=== PATIENT | male | born 1955 | race Caucasian/White ===

== ENCOUNTER → 2021-10-01 09:17 | Outpatient (BNVA) | payer MEDICARE, SELFPAY | PROVIDERS: PCP Nurse Practitioner Family; Referring Provider Nurse Practitioner Family; Visit Provider Student in an Organized Health Care Education/Training Program | DX: M25.552 Pain in left hip (principal); Z96.642 Presence of left artificial hip joint | CPT/HCPCS: 99203 ==

== ENCOUNTER 2023-04-18 11:44 | Outpatient (REF) | payer MEDICARE, SELFPAY ==
[2023-04-18 15:29] LABS: Calculated LDL 163 mg/dL (<100); Cholesterol 242 mg/dL (<200); HDL Cholesterol 62 mg/dL (40-60); Triglyceride 87 mg/dL (<150)
== END 2023-04-18 11:45 | disposition home or self-care (01) ==
LOC: NCHCN 11:44
PROVIDERS: PCP Nurse Practitioner Family; Visit Provider Nurse Practitioner Family
DX: E78.5 Hyperlipidemia, unspecified (principal); R03.0 Elevated blood-pressure reading, without diagnosis of hypertension
CPT/HCPCS: 80061

== ENCOUNTER → 2023-04-28 14:24 | Outpatient (CLI) | payer MEDICARE, SELFPAY ==
--- NOTE | 2023-04-28 | DI.RAD_ITS ---
Exam(s) XR HIP RT COMPLETE AP PELVIS EXAM: XR HIP RT COMPLETE AP PELVIS CLINICAL HISTORY: LOW BACK PAIN RT HIP PAIN. TECHNIQUE: 2D digital imaging was performed. Two views COMPARISON: US ABDOMEN ULTRASOUND (P) from 05/12/2016 US ABDOMEN ULTRASOUND (P) from 05/12/2016 FINDINGS: BONES: No acute fracture is present. No bony destructive lesion is seen. There is a left hip prosthes is which shows normal alignment. No abnormal surrounding bony lucencies. JOINTS: No dislocation present. Apxp-ji-avyzltmc narrowing of the right hip joint space. Mild billy articular spurring. SI joints show mild spurring, left greater than right. SOFT TISSUE: Normal. IMPRESSION: Rvkc-bu-stakmnzi degenerative changes of the right hip. Unremarkable left hip prosthesis. DATA REPOSITORY: RADIATION DOSE DELIVERED:
== END ==
PROVIDERS: PCP Nurse Practitioner Family; Visit Provider Chiropractor
DX: M16.11 Unilateral primary osteoarthritis, right hip (principal)
CPT/HCPCS: 73502

== ENCOUNTER → 2023-05-02 00:55 | Outpatient (CLI) | payer MEDICARE, SELFPAY ==
--- NOTE | 2023-05-02 | DI.RAD_ITS ---
Exam(s) XR HIP LT AP LAT ONLY EXAM: XR HIP LT AP LAT ONLY CLINICAL HISTORY: HIP PAIN, M25.559. TECHNIQUE: 2D digital imaging was performed. Two images were obtained. AP and lateral views were ob tained. COMPARISON: CR XR HIP RT COMPLETE AP PELVIS from 04/28/2023 FINDINGS: BONES: There are stable post operative changes of a left total hip replacement present. No fracture or dislocation. JOINTS: The orthopedic hardware is in good position. No evidence of hardware loosening. SOFT TISSUE: Normal. IMPRESSION: Stable postoperative changes. DATA REPOSITORY: RADIATION DOSE DELIVERED:
--- NOTE | 2023-05-02 | DI.RAD_ITS ---
Exam(s) XR LUMBAR SPINE COMPLETE EXAM: XR LUMBAR SPINE COMPLETE CLINICAL HISTORY: LOW BACK PAIN, M54.50. TECHNIQUE: 2D digital imaging was performed of the lumbar spine. Five images were obtained. AP, la teral, right oblique, left oblique and L5-S1 spot views were obtained. COMPARISON: CT CHEST ABD PELVIS WITH CONTRAST from 05/12/2016 FINDINGS: BONES: No fracture or destructive lesion. There are endplate osteophytes at multiple levels of the star mbar spine. There are degenerative changes of the facets at L4-L5. A left total hip prosthesis is in completely visualized. DISKS: There is disc space narrowing at L1-L2. ALIGNMENT: Lumbar spinal alignment is within normal limits. No spondylolysis or spondylolisthesis. SOFT TISSUE: There is a 1.1 cm calcification projected over the lower pole of the left kidney consist ent with nephrolithiasis. IMPRESSION: Tajp-oy-hfnwanjt degenerative changes in the lumbar spine. DATA REPOSITORY: RADIATION DOSE DELIVERED:
--- NOTE | 2023-05-02 | DI.RAD_ITS ---
Exam(s) XR THORACIC SPINE COMPLETE EXAM: XR THORACIC SPINE COMPLETE CLINICAL HISTORY: BACK PAIN. TECHNIQUE: 2D digital imaging was performed of the thoracic spine. Three views were obtained. AP, swimmer's and lateral views were obtained. COMPARISON: CR CHEST 2 VIEWS PA,LAT from 05/13/2016 FINDINGS: BONES: There is no fracture or destructive lesion. The vertebral bodies and posterior elements are un remarkable. DISKS:Alignment is within normal limits. There are degenerative changes seen throughout the thoracic spine. SOFT TISSUE: Visualized lungs are clear. IMPRESSION: Moderate degenerative changes in the spine thoracic spine. DATA REPOSITORY: RADIATION DOSE DELIVERED:
== END ==
PROVIDERS: PCP Nurse Practitioner Family; Visit Provider Nurse Practitioner Family
DX: M51.35 Other intervertebral disc degeneration, thoracolumbar region (principal)
CPT/HCPCS: 72072; 72110; 73502

== ENCOUNTER → 2023-06-06 02:22 | Outpatient (CLI) | payer MEDICARE, SELFPAY ==
--- NOTE | 2023-06-06 | DI.MRI_ITS ---
Exam(s) MR LUMBAR SPINE WO EXAM: MR LUMBAR SPINE WO CLINICAL HISTORY: LOW BACK PAIN, M54.50. TECHNIQUE: Multiplanar multisequence MRI of the Lumbar spine was performed. COMPARISON: CR XR LUMBAR SPINE COMPLETE from 05/02/2023 CR XR HIP LT AP LAT ONLY from 05/02/2023 FINDINGS: Bones: The last intervertebral disc space is designated the L5/S1 level for the numbering purpose of this ex amination. The vertebral body heights are well maintained. Alignment: Unremarkable. The marrow signal characteristics are unremarkable. Cord: The conus tip ends at the T12 level. It is of normal size and signal intensity. T12-L1: No focal disc herniation is present. No central spinal canal stenosis.No neural foraminal st enosis. L1-2: No focal disc herniation is present. No central spinal canal stenosis.No neural foraminal sten osis. L2-3:Small endplate osteophytes. Posterior broad-based disc bulging. No focal disc herniation is pr esent. Mild facet degenerative changes. Ligamentous hypertrophy. Moderate central spinal canal st enosis moderate bilateral neural foraminal narrowing. L3-4: Arm small endplate osteophytes and mild broad-based disc bulging. Facet degenerative changes a nd ligamentous hypertrophy.No focal disc herniation is present. Kthj-in-fyynpvlu central spinal cyril l stenosis.Bilateral moderate neural foraminal stenosis. L4-5:No disc bulging. No focal disc herniation is present. No central spinal canal stenosis. Facet degenerative changes and ligamentous hypertrophy. No neural foraminal stenosis. L5-S1: No significant disc bulging. No focal disc herniation is present. No central spinal canal stenosis.No neural foraminal stenosis. The visualized SI joints and sacrum are unremarkable. Soft tissues: The paraspinal soft tissues are unremarkable. IMPRESSION: Moderate central canal stenosis and moderate bilateral neural foraminal narrowing at L2-3 secondary t o combination of degenerative disc changes and facet degenerative changes. Zaer-iv-baovwqzs central canal stenosis and moderate bilateral neural foraminal narrowing secondary t o combination of degenerative disc changes and facet degenerative changes. DATA REPOSITORY:
== END ==
PROVIDERS: PCP Nurse Practitioner Family; Visit Provider Nurse Practitioner Family
DX: M48.061 Spinal stenosis, lumbar region without neurogenic claudication
CPT/HCPCS: 72148

== ENCOUNTER 2024-01-23 12:51 | Outpatient (REF) | payer MEDICARE, SELFPAY ==
[2024-01-23 15:39] LABS: Bilirubin Negative (Negative); Blood Small (Negative); Clarity Sl Cloudy (Clear); Glucose Negative (Negative); Ketones Negative (Negative); Leukocyte Esterase Negative (Negative); Nitrite Negative (Negative); Specific Gravity >= 1.030 (1.005-1.025); Urobilinogen 0.2 mg/dL (Up to 0.2); pH 5.5 (5-8)
[2024-01-23 15:49] LABS: Bacteria Many HPF (Negative); C & S Indicated? No; Crystals Mod Calcium Oxalate HPF (Negative); Epithelial Cells Rare HPF (Negative); Mucus Negative (Negative); WBC Negative HPF (0-5)
[2024-01-23 16:15] LABS: COMMENT (LAB VIEW ONLY) 224.27 mg/dL; Microalb ug/mg Crea 13.3 ug/mg Cr
[2024-01-23 19:12] LABS: ALT 30 U/L (16-63); AST 18 U/L (15-37); Alkaline Phosphatase 77 U/L (46-116); Anion Gap 9.6 mmol/L (3-11); BUN 9 mg/dL (7-18); Bilirubin, Total 0.61 mg/dL (0.2-1.0); CO2 25.4 mmol/L (21.0-32.0); CREATININE 0.9 mg/dL (0.70-1.30); Calcium 8.6 mg/dL (8.5-10.1); Calculated LDL 158 mg/dL (<100); Chloride 106 mmol/L (98-107); Cholesterol 237 mg/dL (<200); Estimated GFR 91.88 (mL/min/1.73m2); Glucose 109 mg/dL (74-106); HDL Cholesterol 68 mg/dL (40-60); Potassium 4.2 mmol/L (3.5-5.1); Sodium 141 mmol/L (136-145); Total Protein 6.7 g/dL (6.4-8.2); Triglyceride 58 mg/dL (<150)
== END 2024-01-23 12:52 | disposition home or self-care (01) ==
LOC: NCHCN 12:51
PROVIDERS: PCP Nurse Practitioner Family; Visit Provider Nurse Practitioner Family
DX: E78.5 Hyperlipidemia, unspecified (principal); R39.89 Other symptoms and signs involving the genitourinary system
CPT/HCPCS: 80053; 80061; 81003; 81015; 82043; 82570; 84154

== ENCOUNTER → 2024-02-02 01:33 | Outpatient (CLI) | payer MEDICARE, SELFPAY ==
--- OUTSIDE RECORDS SUMMARY | 2024-02-02 01:40 | XMS_ITS | Encounter Summary ---
Author Organization [facility] [place] [address] Care Team Providers Care Personnel Administrator Name Role Phone Sahra Hope APRN Primary Care Provider [phone] Reason for Visit * Diagnostic Test (Routine) - Closed Specialty Diagnoses / Procedures Referred By Selene beltre Referred To Contact Radiology Diagnoses S/P joint replacement Procedures NM 3 phase bone scan Dennis Ewing MD [facility] ORTHOPAEDIC [place] [address] [place] [address] Referral ID Status Reason Start Date Expiration Date V isits Requested Visits Authorized [id number] Closed Specialty Service Requested 05/15/2015 05/14/2016 1 1 Encounter Details Date Type Department Care Team (Latest Contact Info) Description 05/26/2015 2:01 PM EST - 05/26/2015 11:59 PM EST Hospital Encounter [place] [address] Dennis Ewing MD [facility] ORTHOPAEDIC [place] [address] Discharge Disposition: Home Social History Tobacco Use Types Packs/Day Years Used Date Smoking Tobacco: Never Smokeless Tobacco: Never Alcohol Use Standard Drinks/Week Comments Yes 0 (1 standard drink = 0.6 oz pur e alcohol) occasional Sex and Gender Information Value Date Recorded Sex Assigned at Not on file Gender Identity Not on file Sexual Orientation Not on file documented as of this encounter Medications at Time of Discharge Medication Sig Dispensed Refills Start Date End Date amoxicillin (AMOXIL) 500 mg CapsuleIndications:After care following joint replacement Take 4 tabs one hour prior to dental procedures. 12 capsule 2 06/03/2014 06/23/2020 documented as of this encounter Plan of Treatment Not on file documented as of this encounter Procedures Procedure Name Priority Date/Time Associated Diagnosis Comments NM BONE SCAN 3 PHASE Routine 05/26/2015 3:22 PM EST S/P joint replacement documented in this encounter Results * NM 3 phase bone scan (05/26/2015 3:22 PM EST) Anatomical Region Laterality Modality Nuclear Medicine Impressions 05/26/2015 4:51 PM EST IMPRESSION: 1. ??No evidence for loosening of the left hip prosthesis. 2. 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 I have personally reviewed the image(s) and the residents interpretation and agree with the findings, Jaret Das at 05/26/2015 4:51 PM Narrative 05/26/2015 4:51 PM EST EXAMINATION: NM 3 PHASE BONE SCAN CLINICAL HISTORY: ? loose femoral component TECHNIQUE: Immediately following the intravenous administration of 26.2 mCi of Tc-99m MDP, sequential images of perfusion to the bilateral hips were obtained at 2 second intervals for 60 seconds in the anterior and posterior projections. Five minutes later, blood pool images were obtained of the bilateral hips in the anterior and posterior projections. Three hours later, a bone scan of the bilateral hips was performed with images obtained in the anterior and posterior projections. COMPARISON: Reduction radiographs dated May 15, 2015. FINDINGS: The blood flow and blood pool studies are normal, with no periprosthetic tracer uptake in the left hip. A small focus of increased tracer activity is seen in the inferior left sacroiliac joint region, consistent with focal arthritic reaction. Procedure Note Jaret Das MD - 05/26/2015 EXAMINATION: NM 3 PHASE BONE SCAN CLINICAL HISTORY: ? loose femoral component TECHNIQUE: Immediately following the intravenous administration of 26.2 mCi of Tc-99mMDP, sequential images of perfusion to the bilateral hips were obtained at 2second intervals for 60 seconds in the anterior and posterior projections. Five minutes later, blood pool images were obtained of the bilateral hipsin the anterior and posterior projections. Three hours later, a bone scan of the bilateral hips was performed withimages obtained in the anterior and posterior projections. COMPARISON: Reduction radiographs dated May 15, 2015. FINDINGS: The blood flow and blood pool studies are normal, with no periprosthetictracer uptake in the left hip. A small focus of increased tracer activity is seen in the inferior left sacroiliac joint region, consistent with focal arthritic reaction. IMPRESSION IMPRESSION: 1. No evidence for loosening of the left hip prosthesis. 2. 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 I have personally reviewed the image(s) and the residents interpretationand agree with the findings, Jaret Das at 05/26/2015 4:51 PM Dennis Ewing MD IMG NM ORDERABLES documented in this encounter Visit Diagnoses Not on filedocumented in this encounter Care Teams Personnel Administrator Relationship Specialty Start Date End Date Sahra Hope APRN [address] [place] [address] PCP - General 08/27/14 documented as of this encounter
--- OUTSIDE RECORDS SUMMARY | 2024-02-02 01:40 | XMS_ITS | Encounter Summary ---
Author Organization [facility] Address [facility] [place] [address] Care Team Providers Care Cardiology Clinical Nurse Specialist Name Role Phone TheronAntwon Primary Care Provider [phone] Encounter Details Date Type Department Care Team (Late st Contact Info) Description 03/23/2012 Orders [place] [address] Edgar Cottrell MD [facility] [place] [address] S/P hip replacement (Primary Dx) Social History Tobacco Use Types Packs/Day Years Used Date Smoking Tobacco: Never Smokeless Tobacco: Never Sex and Gender Information Value Date Recorded Sex Assigned at Not on file Gender Identity Not on file Sexual Orientation Not on file documented as of this encounter Plan of Treatment Not on file documented as of this encounter Results * XR pelvis and lateral hip (05/30/2012 2:42 PM EST) Anatomical Region Laterality Modality Pelvis, Hip N/A Radiographic Silvia ging 05/30/2012 2:42 PM EST Narrative 05/30/2012 3:30 PM EST Examination PELVIS+LATERAL HIP/LEFT Clinical History ANNL RCHCK L RENU Comparison 06/30/2010 Technique Findings 2 views of the noncemented left total hip arthroplasty. ??There is nothing interval change with. Iza prosthetic lucency in the proximal femur. No definite subsidence. ??There is a peripheral lucency noted along the femoral shaft component. ??No evidence for eccentric polyethylene wear. Acetabular component appears well seated. Appearance of the right hip demonstrates a mild degree of degenerative change with marginal osteophyte formation and bony overgrowth at the head neck junction. Right and left SI joints are intact. Impression Prominent periprosthetic lucency best seen on the left lateral have been increase from previous imaging may indicate a degree of loosening or infection. ?? No significant subsidence. Procedure Note Arleen Barker MD - 05/30/2012 Examination PELVIS+LATERAL HIP/LEFT Clinical History ANNL RCHCK L RENU Comparison 06/30/2010 Technique Findings 2 views of the noncemented left total hip arthroplasty. There is nothing interval change with. Iza prosthetic lucency in the proximal femur. No definite subsidence. There is a peripheral lucency noted along thefemoral shaft component. No evidence for eccentric polyethylene wear. Acetabular component appears well seated. Appearance of the right hip demonstrates amild degree of degenerative change with marginal osteophyte formation and bony overgrowth at the head neck junction. Right and left SI joints are intact. Impression Prominent periprosthetic lucency best seen on the left lateral have been increase from previous imaging may indicate a degree of loosening orinfection. No significant subsidence. Edgar Cottrell MD IMG DX ORDERABLES documented in this encounter Visit Diagnoses Diagnosis S/P hip replacement- Primary Hip joint replacement by other means S/P hip replacement Hip joint replacement by other means documented in this encounter Care Teams Cardiology Clinical Nurse Specialist Relationship Specialty Start Date End Date Antwon Crump DO [address] [place] [id number] PCP - General 06/09/10 08/26/14 documented as of this encounter
--- OUTSIDE RECORDS SUMMARY | 2024-02-02 01:40 | XMS_ITS | Encounter Summary ---
Author Organization [facility] [place] [address] Care Team Providers Care Labor Operator Name Role Phone TheronAntwon Primary Care Provider [phone] Reason for Visit * Reason Onset Date Comments Medication Refill 06/03/2014 Encounter Details Date Type Department Care Team (Late st Contact Info) Description 06/03/2014 Telephone [place] [id number] Edgar Cottrell MD [facility] [place] [address] Medication Refill Social History Tobacco Use Types Packs/Day Years Used Date Smoking Tobacco: Never Smokeless Tobacco: Never Alcohol Use Standard Drinks/Week Comments Yes 0 (1 standard drink = 0.6 oz pur e alcohol) occasional Sex and Gender Information Value Date Recorded Sex Assigned at Not on file Gender Identity Not on file Sexual Orientation Not on file documented as of this encounter Miscellaneous Notes * Telephone Encounter - Paula Baird RN - 06/03/2014 9:08 AM EST S/P hip replacement Amoxicillin electronically sent to his pharmacy. TC to home notified of above. * Telephone Encounter - Matilde Hagan - 06/03/2014 8:52 AM EST Person calling? [facility] What medication are you refilling? AMOXICILLIN 500MG Would you like this called into a pharmacy? If so, which one? [facility] [place] If not, are you coming to pick this up? N/A Or, would you like this mailed to your home. Best number to reach person calling? [phone] The nurse will call you when your prescription is ready, please allow up to 72 hrs for processing. documented in this encounter Plan of Treatment Not on file documented as of this encounter Visit Diagnoses Diagnosis Aftercare following joint replacement documented in this encounter Care Teams Labor Operator Relationship Specialty Start Date End Date Antwon Crump DO [address] [place] [address] PCP - General 06/09/10 08/26/14 documented as of this encounter
--- OUTSIDE RECORDS SUMMARY | 2024-02-02 01:40 | XMS_ITS | Encounter Summary ---
Author Organization [facility] Address [facility] [place] [address] Care Team Providers Care Gas Usage Meter Clerk Name Role Phone Antwon Crump Primary Care Provider [phone] Reason for Visit * Reason Comments Bilateral Arm Pain Discomfort Left is w orse than right, Complains of numbness Encounter Details Date Type Department Care Team (Late st Contact Info) Description 04/29/2011 12:00 PM EDT Procedure [place] [address] Genevieve Evans MD [facility] PHYSICAL MEDICINE & [place] [address] Carpal tunnel syndrome (Primary Dx) Discharge Disposition: Home Social History Tobacco Use Types Packs/Day Years Used Date Smoking Tobacco: Never Smokeless Tobacco: Never Sex and Gender Information Value Date Recorded Sex Assigned at Not on file Gender Identity Not on file Sexual Orientation Not on file documented as of this encounter Progress Notes * Genevieve Evans - 05/03/2011 11:14 AM EDT ELECTROMYOGRAPHY AND NERVE CONDUCTION REPORT Genevieve Evans MD Section of Physical Medicine and Rehabilitation Department of Orthopedics Provider: Genevieve Evans MD This patient was seen for Electromyographic consultation at the request of Dr Connolly. A few years of numbness into the hands, going into the forearms. They fall asleep at night. They fall asleep with activities. Has had previous fracture clavicle on right and shoulder dislocation on the left. ALso has had THR on the left with some residual numbness into the thigh. He is followed by Dr Cottrell for his hip. The left shoulder has some pain and aching into the joint. If brings arm into flexion and adduction, can feel like he is stretching it. The right does not have real pain but can hurt. Has some achinginto the neck. Feels the numbness in the hands and forearms are the primary complaints. NOtes the symptoms are primarily into the first three digits. Can shake out the symptoms but still returns. Limits him in activities such as kayaking, riding motor bike etc. Summary of results are as follows: FINDINGS: The right and left median motor distal latencies are moderately to more severely delayed ( 5.0 msec on the left and 5.5 msec on the right). Amplitudes are within normal limits. Forearm conductions are mildly slowed. The right and left median sensory distal latencies are moderately slowed with reduced amplitudes, right greater than left ( right- 5.2 msec and left 4.7 msec). Right and left ulnar motor and sensory distal latencies are within normal limits with normal amplitudes and conduction velocities to above elbow. Right and left radial sensory distal latencies are within normal limits with normal amplitudes. Needle study of the right upper extremity shows normal membrane stability. Recruitment is full withno evidence for axonal loss. The exception is the right abductor pollicis brevis which shows mild increased motor unit amplitude and mild motor unit dropout. Needle studies of selected muscles of the left upper extremity and hand show no membrane instability. Recruitment is full and appropriate for effort. The exception is the left abductor pollicis brevis which shows mild increased motor unit amplitude and very mild motor unit dropout. 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 While there is mild, chronic, axonal loss, the primary entrapment is a conduction block at the wrists. . There is no evidence for ulnar nerve entrapment at the wrists or elbows. There is no evidence for peripheral neuropathy. There is no evidence for radiculopathy or brachial plexopathy. Please note that a normal study may not rule out particularly proximal involvement such as plexopathy or radiculopathy as these are primarily clinical diagnoses. Normal values: UE motor distal latencies-4.2 msec: Amp-5 millV sensory distal latencies to peak, 3.6 msec; Amp-10uV conduction velocities- >50 M/sec LE motor distal latencies ( except tibial)-4 msec; Amp 3millV sensory distal latencies-4msec; Amp 5uV conduction velocities- >40 M/sec The results of the test were discussed with the patient. Copies of this report were sent to the primary care and referring physicians. Full scanned report of this study (including the study graphics) is located in the patient's eDH record in the following locations. Once in the patient???s chart, please click on CHART REVIEW. IN CHART REVIEW, there are two ways to access the report. 1. please select the SCAN DOC tab. IN the SCAN DOC section, please double-click on the EMG REPORT for the EMG appointment date. This will open the scanned EMG for that date. 2. Select the PROCEDURE tab. In the PROCEDURE section, please click on the EMG SCAN for the scheduled date. Then please double click on the blue colored link under RESULTS- in the summary below. Thiswill open the scanned EMG for that date Thank you, Genevieve Evans MD documented in this encounter Procedure Notes * Genevieve Evans - 05/03/2011 11:15 AM EDTAssociated Order(s): EMG WITH F-WAVE Procedure(s): EMG WITH F-WAVE Pre-Procedure Diagnose(s): Carpal tunnel syndrome Full scanned report of this study (including the study graphics) is located in the patient's eDH record in the following locations. Once in the patient???s chart, please click on CHART REVIEW. IN CHART REVIEW, there are two ways to access the report. 1. please select the SCAN DOC tab. IN the SCAN DOC section, please double-click on the EMG REPORT for the EMG appointment date. This will open the scanned EMG for that date. 2. Select the PROCEDURE tab. In the PROCEDURE section, please click on the EMG SCAN for the scheduled date. Then please double click on the blue colored link under RESULTS- in the summary below. Thiswill open the scanned EMG for that date Thank you, Genevieve Evans MD Physical Medicine and Rehabilitation documented in this encounter Plan of Treatment Not on file documented as of this encounter Procedures Procedure Name Priority Date/Time Associated Diagnosis Comments EMG WITH F-WAVE Routine 05/03/2011 11:15 AM EDT Carpal tunnel syndrome documented in this encounter Results * EMG WITH F-WAVE (05/03/2011 11:15 AM EDT) Narrative Genevieve Evans - 05/03/2011 11:15 AM EDT Full scanned report of this study (including the study graphics) is located in the patient's eDH record in the following locations. Once in the patient? s chart, please click on CHART REVIEW. IN CHART REVIEW, there are two ways to access the report. 1. please select the SCAN DOC tab. IN the SCAN DOC section, please double-click on the EMG REPORT for the EMG appointment date. This will open the scanned EMG for that date. 2. Select the PROCEDURE tab. In the PROCEDURE section, please click on the EMG SCAN for the scheduled date. Then please double click on the blue colored link under RESULTS- in the summary below. This will open the scanned EMG for that date Thank you, Genevieve Evans MD Physical Medicine and Rehabilitation Procedure Note Genevieve Evans - 05/03/2011 11:15 AM EDT Full scanned report of this study (including the study graphics) islocated in the patient's eDH record in the following locations. Once inthe patient? s chart, please click on CHART REVIEW. IN CHART REVIEW, thereare two ways to access the report. 1. please select the SCAN DOC tab. IN the SCAN DOC section, pleasedouble-click on the EMG REPORT for the EMG appointment date. This willopen the scanned EMG for that date. 2. Select the PROCEDURE tab. In the PROCEDURE section, please click on theEMG SCAN for the scheduled date. Then please double click on the bluecolored link under RESULTS- in the summary below. This will open thescanned EMG for that date Thank you, Genevieve Evans MD Physical Medicine and Rehabilitation Genevieve Evans MD NEUROLOGY ORDERABLES documented in this encounter Visit Diagnoses Diagnosis Carpal tunnel syndrome- Primary documented in this encounter Care Teams Gas Usage Meter Clerk Relationship Specialty Start Date End Date Antwon Crump DO [address] [place] [address] PCP - General 06/09/10 08/26/14 documented as of this encounter
--- OUTSIDE RECORDS SUMMARY | 2024-02-02 01:40 | XMS_ITS | Encounter Summary ---
Author Organization [facility] Address [facility] [place] [address] Care Team Providers Care Drive Worker Name Role Phone Sahra Hope JL Primary Care Provider [phone] Encounter Details Date Type Department Care Team (Late st Contact Info) Description 03/29/2017 Telephone Dermatology at [facility] [address] [place] [address] Shayy Ngo MD [facility] [address] [place] [address] Social History Tobacco Use Types Packs/Day Years [...] encounter Miscellaneous Notes * Telephone Encounter - Sumaya Callejas - 03/29/2017 1:26 PM EDT I spoke with Wojciech Shaw about scheduling a full skin exam and the patient declined at this time. Wojciech did take my direct number to schedule after he's thought about it, patient stated, that we have jumped the gun. documented in this encounter Plan of Treatment Not on file documented as of this encounter Visit Diagnoses Not on filedocumented in this encounter Care Teams Drive Worker Relationship Specialty Start Date End Date Sahra Hope APRN [address] [place] [address] PCP - General 08/27/14 documented as of this encounter
--- OUTSIDE RECORDS SUMMARY | 2024-02-02 01:40 | XMS_ITS | Encounter Summary ---
Author Organization [facility] Address [facility] [place] [address] Care Team Providers Care Appointment Coordinator Name Role Phone Antwon Crump Primary Care Provider [phone] Reason for Visit * Reason Comments Aftercare Of Tjr SP L RENU DOS 04/10/10 Encounter Details Date Type Department Care Team (Late st Contact Info) Description 09/18/2013 2:20 PM EST Office [place] [address] Edgar Cottrell MD [facility] [place] [address] S/P hip replacement (Primary Dx) Discharge Disposition: Home Social History [...] on file documented as of this encounter Last Filed Vital Signs Vital Sign Reading Time Taken Comments Blood Pressure 139/90 09/18/2013 2:23 PM EST Pulse 71 09/18/2013 2:23 PM EST Temperature - - Respiratory Rate - - Oxygen Saturation - - Inhaled Oxygen Concentration - - Weight 82.8 kg (182 lb 9.6 oz) 09/18/2013 2:23 P M EST Height 179.1 cm (5' 10.5) 09/18/2013 2:23 PM ES T STATED Body Mass Index 25.83 09/18/2013 2:23 PM EST documented in this encounter Patient Instructions * Patient Instructions* Kali Torres PA - 09/18/2013 3:00 PM EST -activities as tolerated with exception of running (axial loading) -infection awareness -continue stretching and strengthening -antibiotic prior to dental work documented in this encounter Progress Notes * Kali Torres PA - 09/18/2013 3:08 PM EST Chief COmplaint: S/P Left RENU SURGERY DATE: 04/10/2010 ARAM LUIS, EDGAR Valencia Procedure Performed: Left Total Hip Arthroplasty Implants Used: Femoral Stem: DePuy [place] BPS, Size 6 STD offset Femoral Head: Biolox Delta ceramic, Size 36+5mm Acetabulum: DePuy [place] with Gription, Size 54mm adjuvant screw fixation x 1 x 6.5mm (35mm) Liner: Altrx polyethylene, Size 54x36+4 neutral HPI: Mr Shaw returns now 4 years from his hip replacement. He continues to do very well. He has no pain. ROM and stability are not limiting at all. He continues to be very active. He has no limitations in regard to the hip. His health has been stable aside from the joint. There has been no fevers, chills or signs of infection. Physical Exam: 56 yo male ambulatory with no antalgia or assistive devices. When supine, leg lengths are equal. Calves soft and nontender without edema. Peripheral pulses intact and equal. ROM of thehip is well tolerated without pain or apprehension. No pain or weakness with resisted hip ROM. No pain or shucking with axial loading of the femur. No trochanteric tenderness. X-rays: Noncemented implants; no sign of fracture or dislocation. On the lateral view, there is lucency about the proximal end of the femoral component; unchanged from previous. Assessment: s/p left RENU Plan: He is doing well. We reviewed joint precautions and infection management. Antibiotic prophylaxis was recommended. We discussed appropriate activities to prevent premature implant failure. I encouraged continued joint specific rehab exercises. We'll plan to f/u in 2 year(s) or sooner as needed. documented in this encounter Plan of Treatment Not on file documented as of this encounter Visit Diagnoses Diagnosis S/P hip replacement- Primary Hip joint replacement by other means documented in this encounter Care Teams Appointment Coordinator Relationship Specialty Start Date End Date Antwon Crump DO [address] [place] [address] PCP - General 06/09/10 08/26/14 documented as of this encounter
--- OUTSIDE RECORDS SUMMARY | 2024-02-02 01:40 | XMS_ITS | Encounter Summary ---
Author Organization [facility] Address [facility] [place] [address] Care Team Providers Care Bulk Clerk Name Role Phone Sahra Hope JL Primary Care Provider [phone] Encounter Details Date Type Department Care Team (Late st Contact Info) Description 03/28/2017 Telephone Dermatology at [facility] [address] [place] [address] Shayy Ngo MD [facility] [address] [place] [address] Social History Tobacco Use Types Packs/Day Years [...] encounter Miscellaneous Notes * Telephone Encounter - Shayy Ngo - 03/28/2017 1:[address] Xiao's call. She did a shave bx on 03/16/17. Read at [facility]. Dr. Victoria Marquez. Bx resulted as focal cutaneous mucinosis. She didn't know what to make of this. I reviewed that one lesion can be incidental and of little consequence, but he should have a full skin exam to ensure there aren't other lesions given systemic mucinoses can be associated with blood dyscrasias. I asked that he have the path report with him when he comes for his appt. * Telephone Encounter - Sumaya Callejas - 03/28/2017 9:44 AM EDT Received a call from Annamarie Xiao returning your call, best number to reach her back is [phone] 8 am - 5 pm. documented in this encounter Plan of Treatment Not on file documented as of this encounter Visit Diagnoses Not on filedocumented in this encounter Care Teams Bulk Clerk Relationship Specialty Start Date End Date Sahra Hope APRN [address] [place] [address] PCP - General 08/27/14 documented as of this encounter
--- OUTSIDE RECORDS SUMMARY | 2024-02-02 01:40 | XMS_ITS | Encounter Summary ---
[place] [address] Care Team Providers Care Scrum Master Name Role Phone Sahra Hope APRN Primary Care Provider [phone] Reason for Referral * Diagnostic Test (Routine) - Closed Specialty Diagnoses / Procedures Referred By Contac t Referred To Contact Radiology Diagnoses S/P joint replacement Procedures NM 3 phase bone scan Dennis Ewing MD [facility] [place] [address] [place] [address] Referral ID Status Reason Start Date Expiration Date V isits Requested Visits Authorized [id number] Closed Specialty Service Requested 05/15/2015 05/14/2016 1 1 Reason for Visit * Diagnostic Test (Routine) - Closed Specialty Diagnoses / Procedures Referred By Contac t Referred To Contact Radiology Diagnoses S/P joint replacement Procedures NM 3 phase bone scan Dennis Ewing MD [facility] [place] [address] [place] [address] Referral ID Status Reason Start Date Expiration Date V isits Requested Visits Authorized [id number] Closed Specialty Service Requested 05/15/2015 05/14/2016 1 1 Encounter Details Date Type Department Care Team (Latest Contact Info) Description 05/26/2015 11:23 AM EST - 05/26/2015 2:00 PM EST Hospital Encounter [place] [address] Dennis Ewing MD [facility] DR ORTHOPAEDIC [place] [address] S/P joint replacement Discharge Disposition: Home Social History Tobacco Use [...] at 05/26/2015 4:51 PM Dennis Ewing MD [facility] [place] ORDERABLES documented in this encounter Visit Diagnoses Diagnosis S/P joint replacement Unspecified joint replacement by other means documented in this encounter Administered Medications Inactive Administered Medications - up to 3 most recent administrations Medication Order MAR Action Action Date Dose Rate Site technetium (Tc-99m) methylene diphosphonate (MDP) injection 26.2 mCi 26.2 mCi, Intravenous, ONCE PRN, 1 dose, Starting on Tue05/26/15 at 1210, Until Tue05/26/15 at 1210, Per Protocol, Routine Given 05/26/2015 12:10 PM EST 26.2 mCi documented in this encounter Care Teams Scrum Master Relationship Specialty Start Date End Date Sahra Hope APRN [address] [place] [address] PCP - General 08/27/14 documented as of this encounter
--- OUTSIDE RECORDS SUMMARY | 2024-02-02 01:40 | XMS_ITS | Encounter Summary ---
Author Organization [facility] Address [facility] [address] Care Team Providers Care Grooming Assistant Name Role Phone TheronAntwon Primary Care Provider [phone] Encounter Details Date Type Department Care Team (Late st Contact Info) Description 07/12/2013 Orders [place] [address] Edgar Cottrell MD [facility] [place] [address] Status post hip replacement (Primary Dx) Social History Tobacco [...] Results * XR pelvis and lateral hip (09/18/2013 1:21 PM EST) Anatomical Region Laterality Modality Pelvis, Hip N/A Radiographic Silvia ging 09/18/2013 1:21 PM EST Narrative 09/18/2013 3:01 PM EST Examination PELVIS+LATERAL HIP/LEFT Clinical History LEFT RENU 04/10/2010 Comparison 05/30/2012, 06/30/2010, 04/10/2010. Technique AP pelvis, frogleg lateral left hip. Findings Postsurgical changes of noncemented left total hip arthroplasty. ??No interval subsidence, new significant periprosthetic radiolucency, periprosthetic fracture. ??Existing at 3 -4 mm lucency about the proximal femoral component as seen on the frogleg lateral view, is unchanged since the most recent comparison. Small marginal osteophytes and subchondral sclerosis at the right hip joint indicative of mild osteoarthritis is unchanged. Impression Unchanged appearance of left total hip arthroplasty including 3-4 mm lucency about the proximal femoral component. Procedure Note Ricki Anand MD - 09/18/2013 Examination PELVIS+LATERAL HIP/LEFT Clinical History LEFT RENU 04/10/2010 Comparison 05/30/2012, 06/30/2010, 04/10/2010. Technique AP pelvis, frogleg lateral left hip. Findings Postsurgical changes of noncemented left total hip arthroplasty. Nointerval subsidence, new significant periprosthetic radiolucency, periprosthetic fracture. Existing at 3 -4 mm lucency about the proximal femoralcomponent as seen on the frogleg lateral view, is unchanged since the most recent comparison. Small marginal osteophytes and subchondral sclerosis at the right hipjoint indicative of mild osteoarthritis is unchanged. Impression Unchanged appearance of left total hip arthroplasty including 3-4 mmlucency about the proximal femoral component. Edgar Cottrell MD IMG DX ORDERABLES documented in this encounter Visit Diagnoses Diagnosis Status post hip replacement- Primary Hip joint replacement by other means Status post hip replacement Hip joint replacement by other means documented in this encounter Care Teams Grooming Assistant Relationship Specialty Start Date End Date Antwon Crump DO [address] [place] [address] PCP - General 06/09/10 08/26/14 documented as of this encounter
--- OUTSIDE RECORDS SUMMARY | 2024-02-02 01:40 | XMS_ITS | Encounter Summary ---
[place] [address] Care Team Providers Care Network Relations Consultant Name Role Phone Sahra Hope JL Primary Care Provider [phone] Reason for Visit * Reason Onset Date Comments Medication Refill 06/23/2020 Encounter Details Date Type Department Care Team (Late st Contact Info) Description 06/23/2020 Telephone Orthopaedics at [address] [id number] Moncho Peterson PA [address] [place] [address] [place] [address] Medication Refill Social History Tobacco Use Types [...] encounter Miscellaneous Notes * Telephone Encounter - Anny Gee - 06/23/2020 3:56 PM EST Former patient of Dr. Balbuena, underwent left RENU 04/11/2010. Last note suggested patient SHOULD premedicate prior to dental visits. Refill sent to patient's pharmacy. * Telephone Encounter - Helene Estevez - 06/23/2020 3:25 PM EST Left Hip Replacement 04/11/[address] Cottrell at [facility] and was followed by Dr. Cottrell at [place]. Mr. Shaw is looking for a refill on her pre medication prior to dental work. Amoxicillin 500 mg 4 tablets 1 hour prior to all Dental procedures Would like that called into [facility] in [facility] [phone] Any questions or concerns please give him a call. documented in this encounter Plan of Treatment Not on file documented as of this encounter Visit Diagnoses Diagnosis Aftercare following joint replacement documented in this encounter Care Teams Network Relations Consultant Relationship Specialty Start Date End Date Sahra Hope APRN [address] [place] [address] PCP - General 08/27/14 documented as of this encounter
--- OUTSIDE RECORDS SUMMARY | 2024-02-02 01:40 | XMS_ITS | Encounter Summary ---
Author Organization [facility] Address [facility] [place] [address] Care Team Providers Care Mannequin Mounter Name Role Phone TheronAntwon Primary Care Provider [phone] Encounter Details Date Type Department Care Team (Latest Contact Info) Description 09/18/2013 1:00 PM EST - 09/18/2013 11:59 PM EST Hospital Encounter XRay at [address] [place] [address] Status post hip replacement Social History Tobacco Use Types Packs/Day Years [...] Procedure Name Priority Date/Time Associated Diagnosis Comments XR PELVIS AND LATERAL HIP Routine 09/18/2013 1:21 PM EST Status post hip replacement documented in this encounter Results * XR pelvis and [...] encounter Visit Diagnoses Diagnosis Status post hip replacement Hip joint replacement by other means documented in this encounter Care Teams Mannequin Mounter Relationship Specialty Start Date End Date Antwon Crump DO [address] [place] [address] PCP - General 06/09/10 08/26/14 documented as of this encounter
--- OUTSIDE RECORDS SUMMARY | 2024-02-02 01:40 | XMS_ITS | Encounter Summary ---
Author Organization [facility] Address [facility] [place] [address] Care Team Providers Care Low Altitude Air Defense Officer Name Role Phone TheronAntwon Primary Care Provider [phone] Reason for Visit * Reason Onset Date Comments Results 05/06/2011 Encounter Details Date Type Department Care Team (Late st Contact Info) Description 05/06/2011 Telephone [place] [address] Kacie Connolly MD [facility] DR [place] [address] Results Social History Tobacco Use Types Packs/Day Years Used Date Smoking Tobacco: Never Smokeless Tobacco: Never Sex and Gender Information Value Date Recorded Sex Assigned at Not on file Gender Identity Not on file Sexual Orientation Not on file documented as of this encounter Miscellaneous Notes * Telephone Encounter - Kacie Connolly MD - 05/06/2011 2:37 PM EDT I called Wojciech Shaw to discuss the results of his EMG test. It shows bilateral right greater than left carpal tunnel syndrome. He answered the phone, but was too busy to talk. The plan for him will be for referral to Dr. Medina in hand surgery to discuss his options. documented in this encounter Plan of Treatment Not on file documented as of this encounter Visit Diagnoses Not on filedocumented in this encounter Care Teams Low Altitude Air Defense Officer Relationship Specialty Start Date End Date Antwon Crump DO [address] [place] [address] PCP - General 06/09/10 08/26/14 documented as of this encounter
--- OUTSIDE RECORDS SUMMARY | 2024-02-02 01:40 | XMS_ITS | Encounter Summary ---
Author Organization [facility] Address [facility] [place] [address] Care Team Providers Care Booky Name Role Phone Sahra Hope JL Primary Care Provider [phone] Encounter Details Date Type Department Care Team (Late st Contact Info) Description 03/25/2017 Telephone Dermatology at [facility] [address] [place] [address] Shayy Ngo MD [facility] [address] [address] Social History Tobacco Use Types Packs/Day Years [...] * Telephone Encounter - Shayy Ngo - 03/25/2017 5:49 PM EDT Returned call. No one was available so I left a message with our call back number. * Telephone Encounter - Kaylie Yang - 03/25/2017 2:[address] Korin Man from [facility] called regarding Wojciech. She left a message stating that a shave biopsy procedure Was done and she is questioning the results and how to proceed and the urgency of a referral. 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 Feels it's benign, but may grow back as the entire nodule was not excised. Please reach out to her for guidance at [phone] documented in this encounter Plan of Treatment Not on file documented as of this encounter Visit Diagnoses Not on filedocumented in this encounter Care Teams Booky Relationship Specialty Start Date End Date Sahra Hope APRN [address] [place] [address] PCP - General 08/27/14 documented as of this encounter
--- OUTSIDE RECORDS SUMMARY | 2024-02-02 01:40 | XMS_ITS | Encounter Summary ---
Author Organization [facility] Address [facility] [place] [address] Care Team Providers Care Lead Simulation Modeling Engineer Name Role Phone Sahra Hope JL Primary Care Provider [phone] Encounter Details Date Type Department Care Team (Latest Contact Info) Description 05/15/2015 7:45 AM EDT - 05/15/2015 11:59 PM EDT Hospital Encounter XRay at [address] [place] [address] Dennis Ewing MD [facility] [place] [address] Hip pain, left; S/P joint replacement Discharge Disposition: Home Social [...] Procedure Name Priority Date/Time Associated Diagnosis Comments HEMOGRAM Routine 05/15/2015 9:22 AM EDT S/P joint replacement DIFFERENTIAL, AUTOMATED Routine 05/15/2015 9:22 AM EDT S/P joint replacement SEDIMENTATION RATE Routine 05/15/2015 9: 22 AM EDT S/P joint replacement CBC (WITH DIFF) Routine 05/15/2015 9:22 AM EDT S/P joint replacement CRP, CARDIAC RISK (HS CRP) Routine 05/15/2015 9:22 AM EDT S/P joint replacement XR PELVIS AND HIP 2 VIEWS LEFT Routine 05/15/2015 8:18 AM EDT Hip pain, left documented in this encounter Results * Differential, Automated (05/15/2015 9:22 AM EDT) Neutrophils % 74.5 % CERNER MILLENNIUM Neutr Abs (ANC) 4.54 1.50 - 6.30 x10(3)/mcL CERNER MILLENNIUM Lymphocytes % 17.7 % CERNER MILLENNIUM Lymphocytes Abs 1.1 1.0 - 3.6 x10(3)/mcL CERNER MILLENNIUM Monocytes % 5.7 % CERNER MILLENNIUM Monocyte Abs 0.4 0.2 - 1.0 x10(3)/mcL CERNER MILLENNIUM Eosinophils % 1.6 % CERNER MILLENNIUM Eosinophils Abs 0.1 0.0 - 0.5 x10(3)/mcL CERNER MILLENNIUM Basophils % 0.3 % CERNER MILLENNIUM Basophils Abs 0.0 0.0 - 0.2 x10(3)/mcL CERNER MILLENNIUM Immature Gran % 0.20 % CERN ER MILLENNIUM Comment: Immature granulocytes(IG's)percentage and absolute count will include metamyelocytes, myelocytes, and promyelocytes. Blood smears from CBCs yielding IG's will be scanned manually for concordance. If this scan disagrees with the automated IG or if promyelocytes are noted, a manual differential will be performed. Dolly Gran Abs 0.01 0.00 - 0.05 x10(3)/mcL CERNER MILLENNIUM Blood specimen (specimen) 05/15/2015 9:22 AM EDT 05/15/2015 9:28 AM EDT Narrative Resulting Agency Comment Spec In Lab Dennis Ewing MD HEMATOLOGY ORDERA BLES Performing Organization Address [facility] de Phone Number AKIRA HAMPTON * (ABNORMAL) Hemogram (05/15/2015 9:22 AM EDT) WBC 6.1 4.0 - 10.0 x10(3)/mcL CERNER MILLENNIUM RBC 4.88 4.63 - 6.08 x10(6)/mcL CERNER MILLENNIUM Hemoglobin 16.2 13.7 - 17.5 gm/dL CERNER MILLENNIUM Hematocrit 45.1 40.0 - 51.0 % CERNER MILLENNIUM MCV 92.4(H) 79.0 - 92.0 fL CERNER MILLENNIUM MCH 33.2(H) 25.6 - 32.2 pg CERNER MILLENNIUM MCHC 35.9 32.0 - 36.5 gm/dL CERNER MILLENNIUM Platelets 187 145 - 370 x10(3)/mcL CERNER MILLENNIUM RDWSD 39.8 35.0 - 46.0 fL CERNER MILLENNIUM RDWCV 11.8 10.9 - 14.4 % CERNER MILLENNIUM MPV 10.4 9.0 - 12.0 fL CERNER MILLENNIUM Blood specimen (specimen) 05/15/2015 9:22 AM EDT 05/15/2015 9:28 AM EDT Narrative Resulting Agency Comment Spec In Lab Dennis Ewing MD HEMATOLOGY ORDERA BLES Performing Organization Address [facility] de Phone Number AKIRA HAMPTON * High Sensitivity CRP (05/15/2015 9:22 AM EDT) CRP High Sens 1.9 mg/L CERNER MILLENNIUM Comment: Interpretations: 1) For accurate cardiac risk assessment, the average of 2 values >2 weeks apart should be obtained (ref 1&2). A value >10 mg/L indicates an inflammatory condition, concentrations >10 mg/L should not be used for cardiac risk assessment. ?<1.0 mg/L: low risk ?1.0 - 3.0 mg/L: moderate risk ?>3.0 mg/L: high risk groups for future cardiovascular events 2) The general reference range of apparently healthy individuals using this test is <5.0 mg/L (derived from the test package insert) References: 1. Sabina MONTIEL et. al. ??AHA/CDC Scientific Statement: Markers of Inflammation and Cardiovascular Disease. ??Circulation 2003; 107:499-511 2. Ridker PM. ??Clinical applications of C-reactive protein for cardiovascular disease detection and prevention. ??Circulation 2003; 107:363-369 Blood specimen (specimen) 05/15/2015 9:22 AM EDT 05/15/2015 9:28 AM EDT Narrative Resulting Agency Comment Spec In Lab Dennis Ewing MD CHEMISTRY ORDERAB LES [employer] * Sedimentation rate (05/15/2015 9:22 AM EDT) Sed Rate 5 0 - 15 mm/hr AKIRA RHINACARLIN Blood specimen (specimen) 05/15/2015 9:22 AM EDT 05/15/2015 9:28 AM EDT Narrative Resulting Agency Comment Spec In Lab Dennis Ewing MD HEMATOLOGY ORDERA BLES [facility] [employer] [facility] * XR Pelvis AP And Hip 2 Views Of 1 Hip Left (GENERIC) (05/15/2015 8:18 AM EDT) Anatomical Region Laterality Modality Pelvis, Hip Left Digital Radiogra phy Impressions 05/15/2015 9:45 AM EDT IMPRESSION: Redemonstration of periprosthetic lucency at the proximal aspect of the LEFT hip prosthesis femoral component. Narrative 05/15/2015 9:45 AM EDT EXAMINATION: XR PELVIS AP AND HIP 2 VIEWS OF 1 HIP LEFT CLINICAL HISTORY: hip pain TECHNIQUE: Frontal pelvis. Frontal and lateral LEFT hip. COMPARISON: May 30, 2012 FINDINGS: LEFT total hip replacement with intact hardware without evidence of periprosthetic fracture; however, there is redemonstration of periprosthetic lucency at the proximal aspect of the femoral component. RIGHT inferior pubic ramus obscured by overlying shield. Otherwise, no or dislocation identified. Pelvic ring appears to be intact. LEFT glenohumeral degenerative changes manifested by joint space narrowing and mild subchondral sclerosis. Non-diastatic pubic symphysis. Included inferior portions of the SI joints demonstrate mild degenerative changes. Bowel contents, including air and stool, project over the sacral and iliac bones. Small rounded calcific densities projecting over the pelvis may represent phleboliths. Procedure Note Priyank Loomis MD - 05/15/2015 EXAMINATION: XR PELVIS AP AND HIP 2 VIEWS OF 1 HIP LEFT CLINICAL HISTORY: hip pain TECHNIQUE: Frontal pelvis. Frontal and lateral LEFT hip. COMPARISON: May 30, 2012 FINDINGS: LEFT total hip replacement with intact hardware without evidence of periprosthetic fracture; however, there is redemonstration ofperiprosthetic lucency at the proximal aspect of the femoral component. RIGHT inferiorpubic ramus obscured by overlying shield. Otherwise, no or dislocationidentified. Pelvic ring appears to be intact. LEFT glenohumeral degenerative changes manifested by joint space narrowing and mild subchondral sclerosis. Non-diastatic pubic symphysis. Included inferior portions of the SIjoints demonstrate mild degenerative changes. Bowel contents, including air andstool, project over the sacral and iliac bones. Small rounded calcificdensities projecting over the pelvis may represent phleboliths. IMPRESSION IMPRESSION: Redemonstration of periprosthetic lucency at the proximal aspect of theLEFT hip prosthesis femoral component. Dennis Ewing MD IMG DX ORDERABLES documented in this encounter Visit Diagnoses Diagnosis Hip pain, left Pain in joint, pelvic region and thigh S/P joint replacement Unspecified joint replacement by other means documented in this encounter Care Teams Lead Simulation Modeling Engineer Relationship Specialty Start Date End Date Sahra Hope APRN [address] [place] [address] PCP - General 08/27/14 documented as of this encounter
--- OUTSIDE RECORDS SUMMARY | 2024-02-02 01:40 | XMS_ITS | Encounter Summary ---
Author Organization [facility] [place] [address] Care Team Providers Care Epidemiology Internship Name Role Phone Antwon Crump DO Primary Care Provider [phone] Encounter Details Date Type Department Care Team (Late st Contact Info) Description 03/17/2011 Orders [place] [address] Kacie Connolly MD [facility] [place] [address] Social History Tobacco Use Types Packs/Day Years Used Date Smoking Tobacco: Never Sex and Gender Information Value Date Recorded Sex Assigned at Not on file Gender Identity Not on file Sexual Orientation Not on file documented as of this encounter Plan of Treatment Not on file documented as of this encounter Visit Diagnoses Not on filedocumented in this encounter Care Teams Epidemiology Internship Relationship Specialty Start Date End Date Antwon Crump DO [address] [place] [address] PCP - General 06/09/10 08/26/14 documented as of this encounter
--- OUTSIDE RECORDS SUMMARY | 2024-02-02 01:40 | XMS_ITS | Encounter Summary ---
Author Organization [facility] Address [facility] [place] [address] Care Team Providers Care Admission Liaison Name Role Phone TheronAntwon Arnie GRAJEDA Primary Care Provider [phone] Reason for Visit * Reason Comments Aftercare Of Tjr s/p left RENU 04/10/10 Encounter Details Date Type Department Care Team (Late st Contact Info) Description 05/30/2012 2:55 PM EST Office [place] [address] Edgar Cottrell MD [facility] [address] [place] [address] S/P hip replacement Discharge Disposition: Home Social History Tobacco [...] Sign Reading Time Taken Comments Blood Pressure 130/80 05/30/2012 4:06 PM EST Pulse - - Temperature - - Respiratory Rate - - Oxygen Saturation - - Inhaled Oxygen Concentration - - Weight 79.4 kg (175 lb) 05/30/2012 4:06 PM EST Height 179.1 cm (5' 10.5) 05/30/2012 4:06 PM ES T Body Mass Index 24.75 05/30/2012 4:06 PM EST documented in this encounter Progress Notes * Kali Torres PA - 05/30/2012 4:31 PM EST Chief COmplaint: S/P Left RENU SURGERY DATE: 04/10/2010 ARAM LUIS, EDGAR Valencia Procedure Performed: Left Total Hip Arthroplasty Implants Used: Femoral Stem: DePuy [place] BPS, Size 6 STD offset Femoral Head: Biolox Delta ceramic, Size 36+5mm Acetabulum: DePuy [place] Sector with Gription, Size 54mm adjuvant screw fixation x 1 x 6.5mm (35mm) Liner: Altrx polyethylene, Size 54x36+4 neutral HPI: Mr Shaw returns now 2 years from his hip replacement. He continues to do very well. He has no pain. ROM and stability are not limiting at all. He is much more active than prior to the surgery. He has no limitations. His health has been stable aside from the joint. There has been no fevers, chills or signs of infection. Physical Exam: 56 yo male ambulatory with no antalgia or assistive devices. When supine, leg lengths are equal. Calves soft and nontender without edema. Peripheral pulses intact and equal. ROM of thehip is well tolerated without pain or apprehension. No quad weakness. No pain or weakness with resisted hip flexion. No pain or shucking with axial loading of the femur. No trochanteric tenderness. X-rays: Noncemented implants; no sign of fracture or dislocation. On the lateral view, there is lucency about the proximal end of the femoral component. Assessment: 2 years s/p left RENU; lucency on x-ray of unknown significance Plan: He is doing well. I'm not sure what to make of the lucency on his x-ray. The implant appears to be well fixed in the isthmus. I discouraged him from high impact activity. We reviewed joint precautions and infection management. We'll plan to see him again in 1 year or sooner as needed. documented in this encounter Plan of Treatment Not on file documented as of this encounter Visit Diagnoses Diagnosis S/P hip replacement Hip joint replacement by other means documented in this encounter Care Teams Admission Liaison Relationship Specialty Start Date End Date Antwon Crump DO [address] [place] [id number] PCP - General 06/09/10 08/26/14 documented as of this encounter
--- OUTSIDE RECORDS SUMMARY | 2024-02-02 01:40 | XMS_ITS | Encounter Summary ---
[place] [address] Care Team Providers Care Olive Pitter Name Role Phone Sahra Hope APRN Primary Care Provider [phone] Reason for Referral * Diagnostic Test (Routine) - Closed Specialty Diagnoses / Procedures Referred By Contac t Referred To Contact Radiology Diagnoses S/P joint replacement Procedures NM 3 phase bone scan Dennis Ewing MD [facility] [place] [address] [place] [address] Referral ID Status Reason Start Date Expiration Date V isits Requested Visits Authorized [id number] Closed Specialty Service Requested 05/15/2015 05/14/2016 1 1 Reason for Visit * Reason Comments Hip Pain L side denies injury * Consultation (Routine) - Closed Specialty Diagnoses / Procedures Referred By Contac t Referred To Contact Orthopaedics Diagnoses left hip pain Procedures Sahra Hope APRN [address] [place] [address] [facility] [address] [place] [address] Referral ID Status Reason Start Date Expiration Date Visits Re quested Visits Authorized [id number] Closed 05/09/2015 05/08/2016 1 1 Encounter Details Date Type Department Care Team (Late st Contact Info) Description 05/15/2015 8:30 AM EDT Office [place] [address] Dennis Ewing MD [facility] [place] [address] S/P joint replacement Social History Tobacco Use Types Packs/Day [...] Sign Reading Time Taken Comments Blood Pressure 155/94 05/15/2015 8:28 AM EDT Pulse 86 05/15/2015 8:28 AM EDT Temperature - - Respiratory Rate - - Oxygen Saturation - - Inhaled Oxygen Concentration - - Weight 83 kg (183 lb) 05/15/2015 8:28 AM EDT pt reported Height 177.8 cm (5' 10) 05/15/2015 8:28 AM EDT pt reported Body Mass Index 26.26 05/15/2015 8:28 AM EDT documented in this encounter Progress Notes * Dennis Ewing MD - 05/15/2015 10:33 AM EDT His lab would suggest no infection - ESR 8 and CRP was 1.8 * Dennis Ewing MD - 05/15/2015 8:39 AM EDT This 59 yo white male presents with L hip pain - more groi pain after surgery on 04/10/2010. 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 Femoral stem loosening Plan Will send off for CBC ESR and CRP today and set up for bone scan to see if we can determine If the femoral stem is loose Will set up follow up with Dr Yan documented in this encounter Plan of Treatment Not on file documented as of this encounter Results * NM 3 phase [...] at 05/26/2015 4:51 PM Dennis Ewing MD [facility] [place] ORDERABLES * High Sensitivity CRP (05/15/2015 9:22 AM EDT) [facility] CRP High Sens 1.9 mg/L [facility] Comment: Interpretations: 1) For accurate cardiac risk [...] the test package insert) References: 1. Sabina TA et. al. ??AHA/CDC Scientific Statement: Markers of Inflammation and Cardiovascular Disease. ??Circulation 2003; 107:499-511 2. Vincenzo PM. ??Clinical applications of C-reactive protein for cardiovascular disease detection and prevention. ??Circulation 2003; 107:363-369 Blood specimen (specimen) 05/15/2015 9:22 AM EDT 05/15/2015 9:28 AM EDT Narrative Resulting Agency Comment Spec In Lab Dennis Ewing MD CHEMISTRY ORDERAB LES [facility] * Sedimentation rate (05/15/2015 9:22 AM EDT) Sed Rate 5 0 - 15 mm/hr [facility] Blood specimen (specimen) 05/15/2015 9:22 AM EDT 05/15/2015 9:28 AM EDT Narrative Resulting Agency Comment Spec In Lab Dennis Ewing MD HEMATOLOGY ORDERA BLES Performing Organization Address [facility] Co de Phone Number [facility] documented in this encounter Visit Diagnoses Diagnosis S/P joint replacement Unspecified joint replacement by other means S/P joint replacement Unspecified joint replacement by other means documented in this encounter Care Teams Olive Pitter Relationship Specialty Start Date End Date Sahra Hope APRN [address] [place] [address] PCP - General 08/27/14 documented as of this encounter
--- OUTSIDE RECORDS SUMMARY | 2024-02-02 01:40 | XMS_ITS | Encounter Summary ---
Author Organization [facility] Address [facility] [place] [address] Care Team Providers Care Check Processor Name Role Phone JayyLeeanna reishryn Lamin PARIKH Primary Care Provider [phone] Reason for Referral * Physical Therapy (Routine) - Closed Specialty Diagnoses / Procedures Referred By Selene beltre Referred To Contact Physical Therapy Diagnoses S/P hip replacement Clarisse Ramírez PA [facility] [place] [address] Referral ID Status Reason Start Date Expiration Date V isits Requested Visits Authorized [id number] Closed Evaluate and Treat 06/02/2015 11/29/2015 12 12 Reason for Visit * Reason Comments Left Hip Pain S/P Lt RENU DOS Encounter Details Date Type Department Care Team (Late st Contact Info) Description 06/02/2015 8:20 AM EST Office [place] [address] Thomas Yan MD [facility] [place] [address] S/P hip replacement Social History Tobacco Use Types [...] Sign Reading Time Taken Comments Blood Pressure 148/97 06/02/2015 8:19 AM EST Pt states was stressed getting to appt. Pulse 78 06/02/2015 8:19 AM EST Temperature - - Respiratory Rate - - Oxygen Saturation - - Inhaled Oxygen Concentration - - Weight 85.9 kg (189 lb 4.8 oz) 06/02/2015 8:19 AM EST fully clothed Height 179.1 cm (5' 10.5) 06/02/2015 8 :19 AM EST verbal Body Mass Index 26.78 06/02/2015 8:19 AM EST documented in this encounter Patient Instructions * Patient Instructions* Clarisse Ramírez PA - 06/02/2015 8:57 AM EST Start aleve 1 tab in AM and 1 in PM. Take for no less than 2 weeks. documented in this encounter Progress Notes * Clarisse Ramírez PA - 06/02/2015 8:51 AM EST Arthroplasty/Orthopaedic History: 1. 04/10/10- Left RENU- ceramic on poly- Dr. Cottrell HPI: Wojciech Shaw is a very pleasant 59 y.o. year-old male who presents for a 5 years follow-up of the above procedure. He is actually here because he has been having some increasing groin pain over the last 2 mos. He denies any injury or incident. Pain is intermittent in nature. It does not occur with hiking, walking or paddling. It occurs while flexing hip followed by weight bearing. No pain that interrupts sleep. Has not had any treatment for discomfort. He does have some increase sensory deficit lateral thigh which is newer. No pain that radiates to the feet. No change in bowel or bladder. No fevers, chills, nausea, vomiting, or symptoms of infection. Wojciech has been ambulating with no assistive device. He is not taking narcotic pain medicine. Physical Exam: Well-appearing male in no acute distress. Alert and Oriented x 3 and answers all questions appropriately. Hip Exam: Left Leg Length: Longer leg: equal Limb Length discrepancy: 0cm Motion: Flexion contracture: 0 Total degrees of Flexion: 100- some sense of pressure in groin. Total degrees of Abduction: 45 Total degrees of Ext Rotation: 30 Total degrees of Internal Rotation: 5 Gait Abnormality: Normal Pulses Palpable: Left PT: Yes Left DP: Yes Motor/Sensory: Left Distal Motor: Normal Distal Sensory: Normal Hip Abductors: 5 Trendelenburg test: negative X-RAYS: Multiple radiographic views were obtained at my request and reviewed with the patient. X-rays show a well-placed prosthesis with no evidence of fracture. There has been some consistent lucency about the implant. He has additionally had a bone scan prior to today's visit without evidence of loosening. Questionnaire Responses: [facility] Surgical Postop Visit 06/01/2015 PROMIS-10 General Health Very Good PROMIS-10 Quality of Life Excellent PROMIS-10 Physical Health Very Good PROMIS-10 Mental Health Very Good PROMIS-10 Social Activity Very Good PROMIS-10 Everyday Activities Completely PROMIS-10 Pain 1 PROMIS-10 Fatigue Mild PROMIS-10 Social Roles Very Good PROMIS-10 Anxious or Depressed Rarely PROMIS PHYSICAL HEALTH SCORE 54.1 PROMIS MENTAL HEALTH SCORE 56 Gone to ER since knee surgery No Admitted to hospital since recent ortho surgery No Additional surgery on same body part No Orthopeadics [facility] Response 06/01/2015 HOOS-PS Scores 4.6 ASES VAS-RIGHT - ASES VAS-LEFT - ASES ADL-RIGHT ARM - ASES ADL-LEFT ARM - ASES RIGHT ARM - ASES LEFT ARM - No flowsheet data found. ASSESSMENT/PLAN: Patient seen with Dr. Yan. Mr. Shaw is a 59 y.o. year old male 5 years post-op and doing well. Continue weightbearing as tolerated and working on range of motion, and we will see him back in 5 years for repeat examination unless any complications. X-rays will be needed at that time. Patient may return to normal activities as his pain and function allow. 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 I have recommended short course of anti inflammatory medication along with PT. If worsening symptoms would re evaluate and possible discussion of CT guided injection. His bone scan and lab work have all been very reassuring. We discussed the appropriate precautions surrounding dental prophylaxis. I stressed that he should call the office for a prescription prior to any dental work for the lifetime of the joint replacement. We also discussed maintaining good foot care and giving prompt attention to any source of infection throughout the body including foot ulcers and urinary tract infections. All questions were answered. Signed: SPENCER MOSELEY 06/02/2015 documented in this encounter Plan of Treatment Scheduled Referrals Name Type Priority Associated Diagnoses Orde r Schedule Referral to Physical Therapy Outpatient Referral Routine S/P hip replacement Ordered: 06/02/2015 documented as of this encounter Visit Diagnoses Diagnosis S/P hip replacement Hip joint replacement by other means documented in this encounter Care Teams Check Processor Relationship Specialty Start Date End Date Sahra Hope APRN [address] [place] [address] PCP - General 08/27/14 documented as of this encounter
--- OUTSIDE RECORDS SUMMARY | 2024-02-02 01:40 | XMS_ITS | Encounter Summary ---
[place] [address] Care Team Providers Care Air Valve Mechanic Name Role Phone Antwon Crump DO Primary Care Provider [phone] Encounter Details Date Type Department Care Team (Late st Contact Info) Description 11/29/2012 [place] [address] David Bear, RN Social History Tobacco Use Types Packs/Day Years [...] on filedocumented in this encounter Care Teams Air Valve Mechanic Relationship Specialty Start Date End Date Antwon Crump DO [address] [place] [address] PCP - General 06/09/10 08/26/14 documented as of this encounter
--- OUTSIDE RECORDS SUMMARY | 2024-02-02 01:40 | XMS_ITS | Clinical Summary ---
Author Organization [facility] Address [facility] [place] [address] Care Team Providers Care Preventive Maintenance Coordinator Name Role Phone Sahra Hope Lamin PARIKH Primary Care Provider [phone] Allergies No known active allergies Medications Medication Sig Dispensed Refills Start Date End Date Status amoxicillin (Amoxil) 500 mg CapsuleIndications :Aftercare following joint replacement Take 4 tabs one hour prior to dental appointments 12 capsule 3 06/23/2020 Active Active Problems Problem Noted Date Diagnosed Date S/P hip replacement 05/30/2012 Carpal tunnel syndrome 05/03/2011 Overview (05/03/2011): Bilateral- based on EMG 04/29/11 Paresthesias/numbness 03/17/2011 Resolved Problems Problem Noted Date Diagnosed Date Resolved Date Degenerative joint disease, left hip 05/30/2012 Family History Medical History Relation Comments Cancer Father Heart Disease Father Cancer Maternal Grandmother Cancer Mother Heart Disease Paternal Grandmother Relation Status Comments Father Alive Maternal Grandfather Maternal Grandmother Mother Alive Paternal Grandfather Paternal Grandmother Social History Tobacco Use Types Packs/Day Years Used Date Smoking Tobacco: Never Smokeless Tobacco: Never Alcohol Use Standard Drinks/Week Comments Yes 0 (1 standard drink = 0.6 oz pur e alcohol) occasional Sex and Gender Information Value Date Recorded Sex Assigned at Not on file Gender Identity Not on file Sexual Orientation Not on file Last Filed Vital Signs Vital Sign Reading Time Taken Comments Blood Pressure 148/97 06/02/2015 8:19 AM EST Pt states was stressed getting to appt. Pulse 78 06/02/2015 8:19 AM EST Temperature 36.7 ??C (98 ??F) 03/17/2011 8:1 5 AM EDT Respiratory Rate - - Oxygen Saturation 96% 03/17/2011 8:1 5 AM EDT Inhaled Oxygen Concentration - - Weight 85.9 kg (189 lb 4.8 oz) 06/02/2015 8:19 AM EST fully clothed Height 179.1 cm (5' 10.5) 06/02/2015 8 :19 AM EST verbal Body Mass Index 26.78 06/02/2015 8:19 AM EST Plan of Treatment Health Maintenance Due Date Last Done Comments CT Colonography 1955 Colonoscopy 1955 Colorectal Cancer Screening 1955 FIT DNA 1955 FIT 1955 Sigmoidoscopy (10 year) with FIT yearly 1955 Sigmoidoscopy 1955 Hepatitis C Screening 10/10/1971 Lipid Screening 10/10/1971 Tdap adult 1972 Tetanus vaccine 1972 Zoster vaccine (1 of 2) 10/10/2003 Pneumoccocal Vaccine: 65+ (1 of 1 - PCV) 2018 Covid-19 Vaccine (1 - 2022- season) 2023 Influenza (Flu) vaccine (1 o f 1 - Influenza standard series) 03/18/2024 Advance Directives Documents on File Type Date Recorded Patient Vp Of Product Expl anation Advance Directives and Yasmin g Will 09/16/2010 10:31 AM Care Teams Preventive Maintenance Coordinator Relationship Specialty Start Date End Date Sahra Hope APRN [address] [place] [address] [facility] - General 08/27/14
--- OUTSIDE RECORDS SUMMARY | 2024-02-02 01:40 | XMS_ITS | Encounter Summary ---
Author Organization [facility] Address [facility] [place] [address] Care Team Providers Care Speech Pathology Assistant Name Role Phone Antwon Crump Primary Care Provider [phone] Encounter Details Date Type Department Care Team (Latest Contact Info) Description 05/30/2012 2:18 PM EST - 05/30/2012 11:59 PM EST Hospital Encounter XRay at [address] [place] [address] S/P hip replacement Social History Tobacco Use [...] Date End Date amoxicillin (AMOXIL) 500 mg capsule Take 2,000 mg by mouth. Take before dental visits 11/29/2012 documented as of this encounter Plan of Treatment Not on file documented as of this encounter Procedures Procedure Name Priority Date/Time Associated Diagnosis Comments XR PELVIS AND LATERAL HIP Routine 05/30/2012 2:42 PM EST S/P hip replacement documented in this encounter Results * XR pelvis and lateral hip (05/30/2012 2:42 PM EST) Anatomical Region Laterality Modality Pelvis, Hip N/A Radiographic Silvia ging 05/30/2012 2:42 PM EST Narrative 05/30/2012 3:30 PM EST Examination PELVIS+LATERAL HIP/LEFT Clinical History ANNL RCK L RENU Comparison 06/30/2010 Technique Findings 2 [...] means documented in this encounter Care Teams Speech Pathology Assistant Relationship Specialty Start Date End Date Antwon Crump DO [address] [place] [id number] PCP - General 06/09/10 08/26/14 documented as of this encounter
--- OUTSIDE RECORDS SUMMARY | 2024-02-02 01:40 | XMS_ITS | Encounter Summary ---
Author Organization [facility] Address [facility] [place] [address] Care Team Providers Care Data Collection Technician Name Role Phone Sahra Hope DRIVER [employer] Primary Care Provider [phone] Reason for Visit * Reason Comments Urticaria Encounter Details Date Type Department Care Team (Late st Contact Info) Description 08/27/2014 1:00 PM EST Office Visit Dermatology at [address] [address] Korin Land PA [facility] [address] [place] [address] Chronic urticaria Discharge Disposition: Home Social History Tobacco Use [...] as of this encounter Progress Notes * Reilly Trujillo MD - 08/27/2014 2:28 PM EST I directly supervised Yareli Land PA-C during this office visit. Yareli Land PA-C presented the history and physical exam to me. I then saw and examined this patient with Yareli Land PA-C. We reviewed the history and pertinent details and I confirmed the physical findings. I agree with the de tails of the history and physical exam as documented in Yareli Land PA-C's note. Reilly Trujillo MD Staff Physician * Korin Land PA - 08/27/2014 1:14 PM EST DERMATOLOGY - NEW PATIENT CONSULT NOTE Date of service: 08/27/2014 Wojciech Shaw : 1955 Dermatology Physician Poultry Helper Note: Korin Land PA-C (Bri) Chief Complaint Patient presents with ??? Urticaria Wojciech Shaw is a 58 y.o. male. This is a new patient to me and to the clinic. Seen in consultation at the request of Antwon Crump specifically for the evaluation and management of the above problem. HPI: Mr. Sahw presents for an itchy transient rash that has been intermittent since December of 2013. Patient is curious if there is any connection to receiving the shingles vaccination one month prior in November. Patient describes the lesions as hives, pink and raised and blanchable. They always resolvewithin several hours. The lesions appear all over the body except for the face and appear several times per week. He initially took benadryl at the first sign of rash and itching but it made him drowsy so he tried Claritin which also helped. He only takes Claritin when he has symptoms. He denies any joint or pulmonary symptoms or other rashes. Denies relation to pressure, heat, cold, or alcohol. He has had many bee stings before. He is healthy and well overall. Denies family history of autoimmune conditions. He denies trouble breathing or facial swelling with the rash, except he does report his lower lip swelled a bit once a few weeks ago. He takes no medications except amoxicillin prior to dental procedures as he is s/p hip replacements 4 years ago. Past Skin History: None Medical History: Patient Active Problem List Diagnosis Code ??? Paresthesias/numbness 782.0 ??? Carpal tunnel syndrome 354.0 ??? S/P hip replacement V43.64 Medications: Current Outpatient Prescriptions on File Prior to Visit Medication Sig Dispense Refill ??? amoxicillin (AMOXIL) 500 mg Capsule Take 4 tabs one hour prior to dental procedures. 12 capsule2 No current facility-administered medications on file prior to visit. 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 Skin: An abbreviated skin examination was performed of the face, back, chest, bilateral arms and bilateral legs. Specific skin findings: 1. No skin findings. Diagnosis/Assessment/Treatment Plan: 1. Chronic urticaria per patient history -Claritin nightly for 4 weeks. Recommended increasing dosage to 2 pills nightly if he continues to have symptoms. I will call patient in 2 weeks to check in. Lengthy discussion about this condition and that it will likely be self-limited. Agree with patientto treat his pruritus by maximizing antihistamine therapy. Discussed need to be prophylactic as opposed to reactive. RTC PRN. Instructed to call with questions or concerns. Note initiated by Candy Castrejon CMA I am documenting this encounter acting as the scribe for and in the presence of Korin Land PA-C (Bri) I performed the above scribed service and agree with the accuracy of the documentation in this encounter. Reviewed and signed by Korin Land PA-C (Bri) Dermatology [facility] Patient seen and evaluated with staff progressive care nurse: Reilly Trujillo MD Section of Dermatology [facility] A copy of this report has been sent to the referring provider either by electronic messaging or by fax. Please see message below: We appreciate you allowing us to join in the care of your patient. To help expedite future referrals, we have included some tips below for your reference. We have created guidelines for our scheduling team for prioritizing referrals. By adhering to theseguidelines and referral process requests, we feel we can do a better job meeting your needs. Pleasenote that the following lists are simply guidelines and are subject to change based on your clinical exam. MOST Urgent (need to be seen within 48-72 hours) *Call our Consult [place] to schedule at [phone] ??? New or changing pigmented lesion ??? Eruptive rash (new/concerning) ??? Ruptured cyst ??? Bullous dermatoses (blisters/ blistering rash) ??? Ulcerated hemangioma SEMI Urgent (need to be seen within 2 weeks) *Enter referral in eDH as ???Urgent?? or ???ALYCIA? Eczema and psoriasis flares /dermatitis ??? Skin lesions concerning for non-melanoma skin cancer ??? Hemangioma LEAST Urgent (next available appointment) *Enter referral in eDH as ???Routine? Chronic rash ??? Cosmetic concerns (including skin tags) ??? Onychomycosis and other nail complaints ??? Cysts ??? Acne ??? Alopecia ??? Actinic keratosis ??? Warts/molluscum ??? shrestha We hope you will work with us to educate mutual patients on these expected timelines. We feel that this process will help us see the right patients at the right time. documented in this encounter Plan of Treatment Not on file documented as of this encounter Visit Diagnoses Diagnosis Chronic urticaria Other specified urticaria documented in this encounter Care Teams Data Collection Technician Relationship Specialty Start Date End Date Sahra Hope APRN [address] [place] [address] PCP - General 08/27/14 documented as of this encounter
--- OUTSIDE RECORDS SUMMARY | 2024-02-02 01:40 | XMS_ITS | Encounter Summary ---
Author [facility] [place] [address] Care Team Providers Care Colon Therapist Name Role Phone Antwon Crump DO Primary Care Provider [phone] Encounter Details Date Type Department Care Team (Late st Contact Info) Description 04/30/2011 Orders Only [place] [address] Genevieve Evans MD [facility] PHYSICAL MEDICINE & [place] [address] Social History Tobacco Use Types Packs/Day Years Used Date Smoking Tobacco: Never Smokeless Tobacco: Never Sex and Gender Information Value Date Recorded Sex Assigned at Not on file Gender Identity Not on file Sexual Orientation Not on file documented as of this encounter Plan of Treatment Not on file documented as of this encounter Procedures Procedure Name Priority Date/Time Associated Diagnosis Comments EMG SCAN Routine 04/29/2011 EMG SCAN Routine 04/29/2011 documented in this encounter Results * Scan Doc: EMG (04/29/2011) Genevieve Evans MD MEDIA MGR SCAN EXT O RDR/RSLT * Scan Doc: EMG (04/29/2011) Genevieve Evans MD MEDIA MGR SCAN EXT O RDR/RSLT documented in this encounter Visit Diagnoses Not on filedocumented in this encounter Care Teams Colon Therapist Relationship Specialty Start Date End Date Antwon Crump DO [address] [place] [address] PCP - General 06/09/10 08/26/14 documented as of this encounter
--- OUTSIDE RECORDS SUMMARY | 2024-02-02 01:40 | XMS_ITS | Encounter Summary ---
Author Organization [facility] Address [facility] [place] [address] Care Team Providers Care Business Analysis Analyst Name Role Phone Sahra Hope JL Primary Care Provider [phone] Encounter Details Date Type Department Care Team (Late st Contact Info) Description 09/11/2014 Telephone Dermatology at [facility] [address] [place] [address] Korin Land PA [facility] [address] [place] [address] Social History Tobacco Use Types Packs/Day Years [...] encounter Miscellaneous Notes * Telephone Encounter - Korin Land PA - 09/11/2014 10:38 AM EST Spoke to patient regarding hives. He has been taking one Claritin (10 mg) nightly and has not had any hives since our appointment. I suggested he continue with one tablet nightly and increase to two nightly if he develops hives. We also discussed possibility of stopping Claritin to see if he won't get hives, but I did caution that the antihistamine therapy is for prevention and should not be usedfor treatment. He will continue prophylaxis as discussed and call prn. documented in this encounter Plan of Treatment Not on file documented as of this encounter Visit Diagnoses Not on filedocumented in this encounter Care Teams Business Analysis Analyst Relationship Specialty Start Date End Date Sahra Hope APRN [address] [place] [address] PCP - General 08/27/14 documented as of this encounter
--- OUTSIDE RECORDS SUMMARY | 2024-02-02 01:41 | XMS_ITS | Encounter Summary ---
Author Organization [facility] Address [facility] [place] [address] Care Team Providers Care Ground Crew Lines Person Name Role Phone Sahra Hope JL Primary Care Provider [phone] Encounter Details Date Type Department Care Team (Late st Contact Info) Description 04/10/2010 Orders [place] [address] Edgar Cottrell MD [facility] [place] [address] Social History Tobacco Use Types Packs/Day Years Used Date Smoking Tobacco: Never Assessed Sex and Gender Information Value Date Recorded Sex Assigned at Not on file Gender Identity Not on file Sexual Orientation Not on file documented as of this encounter Plan of Treatment Not on file documented as of this encounter Procedures Procedure Name Priority Date/Time Associated Diagnosis Comments SURGICAL PATHOLOGY REPORT Routine 04/10/2010 5:23 PM EDT documented in this encounter Results * Surgical Pathology Report (04/10/2010 5:23 PM EDT) Surgical Pathology Report [id number] ? Location: 3T; [facility]; A The signing pathologist has (i) examined the relevant preparation(s) for the specimen(s) and (ii) rendered or confirmed the diagnosis(es). . ?Pathology Surgical Pathology Final Report Clinical Information Specimen Submitted: A - Femoral Head, Left Hip Clinical History: Not provided Clinical Diagnosis: Left hip OA Gross Description Labeled/Fixative : ? Femoral head, left hip; fresh. Quantity/Size: ?One femoral head, 5.5 x 5.3 x 5.3 cm. Tissue Description: ?? Intact femoral head with partially fractured, ?4.0 x 4.0 x 0.8-cm portion of femoral neck. ?? Articular surface: Yellow-brown, granular. ? Eburnation: ?Present, up to 4.0 cm. ? Osteophytes: ? Peripherally focally present, up to 1.8 cm. ?? Cut surface: ? Yellow and congested with evidence of placement of a ?threaded reshma within the base of the specimen. ? Subchondral Sclerosis: ??Present below the area of eburnation. ? Subchondral Cysts: ?Not grossly identified. Sections/Process ing: ??No sections are submitted. ??aje/SHB Diagnosis Articular bone and soft tissue consistent with osteoarthritis, left hip. ?? Gross surgical pathology examination. CR-0 04/13/10 AJE 04/14/10 Verified by: ? Garry Wing MD ?Pathologist ?(Electronic Signature) The attending pathologist whose signature appears on this report has reviewed all diagnostic slides and has edited the gross and/or microscopic portion of the report in rendering the final pathologic diagnosis. [facility] 04/10/2010 5:23 PM EDT Edgar Cottrell MD PATHOLOGY/CYTOLOGY O RDERALISANDRO Performing Organization Address City/State/[facility] Co de Phone Number [facility] documented in this encounter Visit Diagnoses Not on filedocumented in this encounter Care Teams Ground Crew Lines Person Relationship Specialty Start Date End Date Sahra Hope APRN [address] [place] [address] PCP - General 08/27/14 documented as of this encounter
--- OUTSIDE RECORDS SUMMARY | 2024-02-02 01:41 | XMS_ITS | Encounter Summary ---
[place] [address] Care Team Providers Care Bag Sewer Name Role Phone Antwon Crump DO Primary Care Provider [phone] Reason for Referral * Consultation (Routine) - Closed Specialty Diagnoses / Procedures Referred By Selene beltre Referred To Contact Neurology Diagnoses Paresthesias/numbness Saurabh Bonilla III, MD [facility] [place] [address] [facility] [address] [place] [address] Referral ID Status Reason Start Date Expiration Date V isits Requested Visits Authorized [id number] Closed Consult, Test & Treat 03/17/2011 09/13/2011 1 1 Reason for Visit * Reason Comments Bilateral Shoulder Pain R shldr impingem ent / L shldr instability Encounter Details Date Type Department Care Team (Late st Contact Info) Description 03/17/2011 7:50 AM EDT Office [place] [address] Kacie Connolly MD [facility] [place] [address] Saurabh Bonilla III, MD [facility] [place] [address] Paresthesias/numbness (Primary Dx) Discharge Disposition: Home Social History Tobacco Use Types Packs/Day Years Used Date Smoking Tobacco: Never Sex and Gender Information Value Date Recorded Sex Assigned at Not on file Gender Identity Not on file Sexual Orientation Not on file documented as of this encounter Last Filed Vital Signs Vital Sign Reading Time Taken Comments Blood Pressure 143/92 03/17/2011 8:15 AM EDT Pulse 72 03/17/2011 8:15 AM EDT Temperature 36.7 ??C (98 ??F) 03/17/2011 8:15 AM EDT Respiratory Rate - - Oxygen Saturation 96% 03/17/2011 8:15 AM EDT Inhaled Oxygen Concentration - - Weight 77.1 kg (170 lb) 03/17/2011 8:15 AM EDT Height 177.8 cm (5' 10) 03/17/2011 8:15 AM EDT Body Mass Index 24.39 03/17/2011 8:15 AM EDT documented in this encounter Progress Notes * Saurabh Bonilla III, MD - 03/17/2011 9:11 AM EDT ATTENDING PHYSICIAN: Kacie Connolly M.D. CHIEF COMPLAINT: Bilateral hand paresthesias. HISTORY OF PRESENT ILLNESS: Mr. Shaw is a very pleasant right hand dominant gentleman, who has a significant history of bilateral shoulder injuries, including a left anterior dislocation in 1994 while he was snowboarding, and then a right clavicle fracture in 2003. In regards to his left shoulder, he has had only one recurrent dislocation that was within a year of his initial injury. In regards to his clavicle, this was treated nonoperatively and has healed nicely. He continues to be very active, and has no limitations in terms of what activities he can do. He presents to clinic today because of bilateral hand numbness and tingling, which has been going for approximately three years' time. His symptoms are worse at night. He states that he will typically wake up at night with paresthesias on the right greater than left in the median nerve distribution. In addition, when he is driving or kayaking, he will also have these symptoms. 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 He states he is otherwise healthy, and has no complaints of shoulder or neck pain. PAST MEDICAL HISTORY: Status post left total hip arthroplasty [place] [address] Cottrell. MEDICATIONS: None. ALLERGIES: NONE. 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 He is very active in variety of outdoor sports. REVIEW OF SYSTEMS: Negative other than stated above. PHYSICAL EXAMINATION: On physical exam, this is a well-appearing gentleman in no acute distress. Heart is regular rate and rhythm, checked peripherally. He has symmetrical chest rise. No respiratory distress. Pupils equal and reactive to light. Cranial nerves II through XII are grossly intact. Head is atraumatic, normocephalic. Skin is warm and dry. Evaluation of his bilateral upper extremities reveals full painless active and passive range of motion of his shoulders with active forward elevation to approximately 180 degrees. External rotation is to approximately 50 degrees on the right and 40 degrees on the left. Internal rotation to mid thoracic spine bilaterally. He has negative lift-off, negative Yergason's, negative Speed, and negative empty can. He has no tenderness to palpation over his AC joints. There is no swelling, erythema, or evidence of trauma. He has negative Tinel's, negative Phalen's. His skin is warm and dry. His sensation is intact in the radial, ulnar, lateral antebrachial, cutaneous, and axillary nerve root distributions. He has no thenar atrophy. Negative apprehension and relocation test. IMAGING: Imaging was reviewed and reveals very mild glenohumeral joint osteoarthritis that is left greater than right. Clavicle fracture is well healed. No evidence of any fractures or dislocations. ASSESSMENT AND PLAN: Mr. Shaw is a very pleasant right hand dominant 55-year-old gentleman with prior shoulder injuries including a left shoulder dislocation and a right clavicle fracture, who presents with bilateral hand numbness and tingling. His symptoms and complaints are most consistent with bilateral carpal tunnel syndrome, however, on exam he has negative Tinel's and negative Phalen's. No thenar atrophy. Despite this, I do not think that this is likely related to his clavicle fracture or shoulder dislocation, as this is the patient's biggest concern. He denies any neck pain or any prior neck trauma, so this is also somewhat unlikely. That all being said, I think the next prudent measure would be to obtain EMGs to assess the level of injury/compression to the nerves. We will refer him to neurology for EMG studies, and then Dr. Connolly will call the patient with results, and discuss further treatment options. If the EMG shows more of a problem, at that time, we will address any further diagnostic testing. It was a pleasure meeting Mr. Shaw today, and we look forward to speaking to him in the future. All of his questions and concerns were answered. Attending addendum: The preceeding portion of this note was written by Dr. Bonilla. I personally saw and evaluated the patient as well and I agree with the assessment and plan documented above. Kacie Connolly M.D., M.S. Product Developer of Orthopaedic Surgery Shoulder, Elbow, and Sports Medicine Department of Orthopaedic Surgery [place], [place] [address] documented in this encounter Plan of Treatment Scheduled Referrals Name Type Priority Associated Diagnoses Orde r Schedule REFERRAL TO NEUROLOGY Outpatient Referral Routine Paresthesias/numbnes s Ordered: 03/17/2011 documented as of this encounter Visit Diagnoses Diagnosis Paresthesias/numbness- Primary Disturbance of skin sensation documented in this encounter Care Teams Bag Sewer Relationship Specialty Start Date End Date Antwon Crump DO [address] [place] [id number] PCP - General 06/09/10 08/26/14 documented as of this encounter
--- OUTSIDE RECORDS SUMMARY | 2024-02-02 01:41 | XMS_ITS | Encounter Summary ---
Author Organization [facility] Address [facility] [place] [address] Care Team Providers Care Refinery Operator Helper Cracking Unit Name Role Phone Antwon Crump DO Primary Care Provider [phone] Encounter Details Date Type Department Care Team (Late st Contact Info) Description 06/30/2010 2:30 PM EST Office [place] [address] Edgar Cottrell MD [facility] [place] [address] Discharge Disposition: Home Social History Tobacco Use [...] on filedocumented in this encounter Care Teams Refinery Operator Helper Cracking Unit Relationship Specialty Start Date End Date Antwon Crump DO [address] [place] [address] PCP - General 06/09/10 08/26/14 documented as of this encounter
--- OUTSIDE RECORDS SUMMARY | 2024-02-02 01:41 | XMS_ITS | Encounter Summary ---
Author Organization [facility] [place] [address] Care Team Providers Care Grave Digger Name Role Phone Antwon Crump DO Primary Care Provider [phone] Encounter Details Date Type Department Care Team (Late st Contact Info) Description 06/30/2010 2:00 PM EST Procedure visit [facility] [address] Social History Tobacco Use Types Packs/Day Years Used Date Smoking Tobacco: Never Assessed Sex and Gender Information Value Date Recorded Sex Assigned at Not on file Gender Identity Not on file Sexual Orientation Not on file documented as of this encounter Plan of Treatment Not on file documented as of this encounter Visit Diagnoses Not on filedocumented in this encounter Care Teams Grave Digger Relationship Specialty Start Date End Date Antwon Crump DO [address] [place] [address] PCP - General 06/09/10 08/26/14 documented as of this encounter
--- OUTSIDE RECORDS SUMMARY | 2024-02-02 01:41 | XMS_ITS | Encounter Summary ---
Author Organization [facility] [place] [address] Care Team Providers Care Landscape Architect And Planner Name Role Phone Antwon Crump DO Primary Care Provider [phone] Encounter Details Date Type Department Care Team (Late st Contact Info) Description 03/12/2011 Orders Only [place] [address] Kacie Connolly MD [facility] [place] [address] Pain in joint, shoulder region (Primary Dx) Social History Tobacco Use Types Packs/Day Years Used Date Smoking Tobacco: Never Assessed Sex and Gender Information Value Date Recorded Sex Assigned at Not on file Gender Identity Not on file Sexual Orientation Not on file documented as of this encounter Plan of Treatment Not on file documented as of this encounter Visit Diagnoses Diagnosis Pain in joint, shoulder region- Primary documented in this encounter Care Teams Landscape Architect And Planner Relationship Specialty Start Date End Date Antwon Crump DO [address] [place] [id number] PCP - General 06/09/10 08/26/14 documented as of this encounter
--- OUTSIDE RECORDS SUMMARY | 2024-02-02 01:41 | XMS_ITS | Encounter Summary ---
Author Organization [facility] Address [address] [place] [address] Care Team Providers Care Enterprise Applications Manager Name Role Phone Unknown, Provider Primary Care Provider [phone] Encounter Details Date Type Department Care Team (Late st Contact Info) Description 03/16/2017 Results Only [facility] [phone] Jay Noel, [facility]- [address] [place] [phone] Social History Tobacco Use Types Packs/Day Years Used Date Smoking Tobacco: Never Assessed Sex and Gender Information Value Date Recorded Sex Assigned at Not on file Gender Identity Not on file Sexual Orientation Not on file documented as of this encounter Plan of Treatment Not on file documented as of this encounter Procedures Procedure Name Priority Date/Time Associated Diagnosis Comments SURGICAL PATHOLOGY Routine 03/16/2017 19 :22 EDT documented in this encounter Results * SURGICAL PATHOLOGY (03/16/2017 19:22 EDT) Pathology Report: SURGICAL PATHOLOGY REPORT Reports generated via electronic interface contain original data; however they are lacking the format of the original report. Caution should be taken when reading/interpret ing unformatted reports. Name: ? WOJCIECH DE LEÓN ? Accession #: ? [id number] ? : ? 1955 (Age: 61) ??M ? Collect Date: ? 03/16/2017 ? Location: ? [facility] ? Receive Date: ? 03/17/2017 ? Provider: JAY ZHENG LOCAL SALES ASSOCIATE-BC Copy to: ? Final Pathologic Diagnosis: SKIN OF KNEE, RIGHT, SHAVE BIOPSY: - Dermis with nodular mucin accumulation. See comment. 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 The lesion extends to the biopsy base. This case has been reviewed by Dr. Paula Monroy, who concurs with the above diagnosis. ??(Dr. Marquez)/ljn Document reviewed and electronically signed by: SYED MARQUEZ MD Report ??Date: 03/22/2017 16:03 By the signature above, the attending physician certifies that he/she has personally conducted a gross and/or microscopic examination of the described specimens and rendered or confirmed the above diagnosis. Specimen(s) Received: Right knee soft tissue mass (epidermis) shave biopsy Clinical History: Soft tissue mass/nodule from pt's inner knee (R); growing, nontender; no known skin CA hx; non-pigmented; (+) hx sun exposure Gross Description: ? Received in formalin labelled with proper patient identification (initials B, N) and right knee soft tissue mass is a shave biopsy of soliz-brown hairbearing skin (1.1 x 0.9 x 0.2 cm). There is a central soliz-white indurated nodule that measures 0.6 x 0.5 x 0.2 cm. The cut surfaces are rubbery and soliz-white. Quadrisected and submitted in 1. SPENCER Veliz (ASCP) 03/18/2017 8:20 AM End of Report [facility] 03/16/2017 19:2 2 EDT 03/17/2017 19:22 EDT Jay Noel LOCAL SALES ASSOCIATE-BC PATHOLOGY ORDERA BLES [facility] [address] [place] [address] documented in this encounter Visit Diagnoses Not on filedocumented in this encounter Care Teams Enterprise Applications Manager Relationship Specialty Start Date End Date Unknown, Provider, PCP - General 03/17/17 documented as of this encounter
--- OUTSIDE RECORDS SUMMARY | 2024-02-02 01:41 | XMS_ITS | Encounter Summary ---
Author Organization [facility] Address [address] [place] [address] Care Team Providers Care Clinical Account Specialist Name Role Phone Unknown, Provider Primary Care Provider Reason for Visit * Reason Onset Date Comments Other 03/25/2017 Encounter Details Date Type Department Care Team (Late st Contact Info) Description 03/25/2017 Telephone [facility] Dermatology 3rd Floor [address] [address] Stacy Rhodes MD PhD [address] [place] [address], [address] [place] [address] Other Social History Tobacco Use Types Packs/Day Years Used Date Smoking Tobacco: Never Assessed Sex and Gender Information Value Date Recorded Sex Assigned at Not on file Gender Identity Not on file Sexual Orientation Not on file documented as of this encounter Miscellaneous Notes * Telephone Encounter - Maria De Jesus Hartley - 04/20/2017 0835 EDT Annamarie will not be back in the office for over one week therefore I spoke to the triage nurse and reassured her that an isolated lesion of focal cutaneous mucinosis is harmless. It can be treated with surgical removal or benign neglect. If there are additional lesions, thyroid disease, lupus, scleredema, etc it may represent an underlying condition but she states it is a solitary lesion and ??andis otherwise healthy aside from HLD. Stacy Rhodes MD 04/13/2017 15:55 * Telephone Encounter - Hailee Connolly RN - 03/29/2017 1135 EDT Pathology report in PRISM Returned call to Lakeshia Xiao, BUFFING LINE SET UP WORKER Spoke to Genevieve at [facility] who took a message for her to call us back In addition, if patient is being referred, we'll need more clinical information - please Fax notes If she is looking for telephone consult with one of the providers, she can call via PAS to speak with Senior Revenue Accountant On-call HAILEE CONNOLLY RN 03/29/2017 11:37 * Telephone Encounter - Anny Ya - 03/25/2017 1633 EDT Lakeshia Xiao BUFFING LINE SET UP WORKER is asking for a consult over the phone for a pathology report. Patient doesn'thave an appointment yet. Please call to discuss. documented in this encounter Plan of Treatment Not on file documented as of this encounter Visit Diagnoses Not on filedocumented in this encounter Care Teams Clinical Account Specialist Relationship Specialty Start Date End Date Unknown, Provider, PCP - General 03/17/17 documented as of this encounter
--- OUTSIDE RECORDS SUMMARY | 2024-02-02 01:41 | XMS_ITS | Encounter Summary ---
[place] [address] Care Team Providers Care Billet Assembler Name Role Phone Antwon Crump DO Primary Care Provider [phone] Encounter Details Date Type Department Care Team (Late st Contact Info) Description 03/16/2011 [place] [phone] Nirali Colón, RN Social History Tobacco Use Types Packs/Day Years Used Date Smoking Tobacco: Never Assessed Sex and Gender Information Value Date Recorded Sex Assigned at Not on file Gender Identity Not on file Sexual Orientation Not on file documented as of this encounter Plan of Treatment Not on file documented as of this encounter Visit Diagnoses Not on filedocumented in this encounter Care Teams Billet Assembler Relationship Specialty Start Date End Date Antwon Crump DO [address] [place] [phone] PCP - General 06/09/10 08/26/14 documented as of this encounter
--- OUTSIDE RECORDS SUMMARY | 2024-02-02 01:41 | XMS_ITS | Referral Summary ---
Author Organization [facility] Address [address] [place] [address] Care Team Providers Care Merchandising Specialist Name Role Phone Unknown, Provider Primary Care Provider [phone] Social History Tobacco Use Types Packs/Day Years Used Date Smoking Tobacco: Never Assessed Interpersonal Safety Answer Date Record ed Physically Hurt Never 02/18/2020 Verbally Threaten Not on file 02/18/2020 Sex and Gender Information Value Date Recorded Sex Assigned at Not on file Gender Identity Not on file Sexual Orientation Not on file Plan of Treatment Not on file Care Teams Merchandising Specialist Relationship Specialty Start Date End Date Unknown, Provider, PCP - General 03/17/17
--- OUTSIDE RECORDS SUMMARY | 2024-02-02 01:41 | XMS_ITS | Encounter Summary ---
Author Organization [facility] Address [address] [place] [address] Care Team Providers Care Asian Art Curator Name Role Phone Unavailable Primary Care Provider Unavailabl e Encounter Details Date Type Department Care Team (Latest Contact Info) Description 03/16/2017 11:42 EDT - 03/16/2017 23:59 EDT Hospital Encounter [address] [address] Unknown, Provider, Discharge Disposition: Home or Self Care Social History Tobacco Use Types Packs/Day Years Used Date Smoking Tobacco: Never Assessed Sex and Gender Information Value Date Recorded Sex Assigned at Not on file Gender Identity Not on file Sexual Orientation Not on file documented as of this encounter Discharge Disposition Disposition Code Departure Means Destination Home or Self Skilled Nursing documented in this encounter Plan of Treatment Not on file documented as of this encounter Visit Diagnoses Not on filedocumented in this encounter
--- OUTSIDE RECORDS SUMMARY | 2024-02-02 01:41 | XMS_ITS | Clinical Summary ---
Author Organization [facility] Address [address] [place] [address] Care Team Providers Care Bank Vault Custodian Name Role Phone Unknown, Provider Primary Care Provider Social History Tobacco Use Types Packs/Day Years Used Date Smoking Tobacco: Never Assessed Interpersonal Safety Answer Date Record ed Physically Hurt Never 02/18/2020 Verbally Threaten Not on file 02/18/2020 Sex and Gender Information Value Date Recorded Sex Assigned at Not on file Gender Identity Not on file Sexual Orientation Not on file Plan of Treatment Health Maintenance Due Date Last Done Comments Hepatitis C Screen 1955 RSV Immunization ( o r 60+ Years) (1 - 1-dose 60+ series) 2013 Fall Risk Screening 2018 COVID-19 Vaccine (2022-24 season) 2023 Care Teams Bank Vault Custodian Relationship Specialty Start Date End Date Unknown, Provider, PCP - General 03/17/17
--- OUTSIDE RECORDS SUMMARY | 2024-02-02 01:41 | XMS_ITS | Encounter Summary ---
Author Organization [facility] Address [facility] [place] [address] Care Team Providers Care Staff Internist Office Based Only Name Role Phone Antwon Crump Primary Care Provider [phone] Encounter Details Date Type Department Care Team (Latest Contact Info) Description 03/17/2011 7:25 AM EDT - 03/17/2011 11:59 PM EDT Hospital Encounter XRay at [address] [place] [address] Pain in joint, shoulder region Social History Tobacco Use Types Packs/Day Years Used Date Smoking Tobacco: Never Sex and Gender Information Value Date Recorded Sex Assigned at Not on file Gender Identity Not on file Sexual Orientation Not on file documented as of this encounter Plan of Treatment Not on file documented as of this encounter Procedures Procedure Name Priority Date/Time Associated Diagnosis Comments XR SHOULDERS MIN 2 VIEWS BILAT Routine 03/17/2011 7:53 AM EDT Pain in joint, shoulder region documented in this encounter Results * XR SHOULDERS BILATERAL (03/17/2011 7:53 AM EDT) Anatomical Region Laterality Modality Shoulder Bilateral Radiographic Silvia ging 03/17/2011 7:53 AM EDT Impressions 03/17/2011 10:34 PM EDT IMPRESSION: 1. ?Right shoulder joint degeneration indicated by small osteophyte at the humeral head/neck junction. Subacromial space mild to moderately narrowed. 2. ?Left shoulder joint degeneration with moderately large osteophyte at the humeral head/neck junction. Subacromial space is near normal. 3. Narrative 03/17/2011 10:34 PM EDT EXAMINATION: FIVE VIEWS OF BILATERAL SHOULDERS. INDICATION: Right shoulder impingement. Left shoulder instability. TECHNIQUE: Five views of right and five views of left shoulder. COMPARISON: None. FINDINGS: RIGHT SHOULDER: Glenohumeral joint space is well preserved. Small osteophyte at the right humeral head/neck junction. Mild down-sloping of the acromium and mild to moderate narrowing of the subacromial space. Mild to moderate degenerative changes of the AC joint indicated by joint space narrowing, small osteophytes, and some subchondral cysts. Healed right distal clavicle shaft fracture as already seen on chest x-ray of 03/05/10. LEFT SHOULDER: Glenohumeral joint space is still quite well preserved. Moderately large osteophyte at the left humeral head/neck junction. Alignment is normal. No subluxation. Degenerative changes at the AC joint with a separate small ossicle or an osteophyte at the distal left clavicle. Subacromial space is near normal. Procedure Note Gayatri Pratt MD - 03/17/2011 EXAMINATION: FIVE VIEWS OF BILATERAL SHOULDERS. INDICATION: Right shoulder impingement. Left shoulder instability. TECHNIQUE: Five views of right and five views of left shoulder. COMPARISON: None. FINDINGS: RIGHT SHOULDER: Glenohumeral joint space is well preserved. Smallosteophyte at the right humeral head/neck junction. Mild down-sloping of the acromiumand mild to moderate narrowing of the subacromial space. Mild to moderate degenerative changes of the AC joint indicated by joint space narrowing,small osteophytes, and some subchondral cysts. Healed right distal clavicleshaft fracture as already seen on chest x-ray of 03/05/10. LEFT SHOULDER: Glenohumeral joint space is still quite well preserved. Moderately large osteophyte at the left humeral head/neck junction.Alignment is normal. No subluxation. Degenerative changes at the AC joint with aseparate small ossicle or an osteophyte at the distal left clavicle. Subacromialspace is near normal. IMPRESSION IMPRESSION: 1. Right shoulder joint degeneration indicated by small osteophyte atthe humeral head/neck junction. Subacromial space mild to moderately narrowed. 2. Left shoulder joint degeneration with moderately large osteophyteat the humeral head/neck junction. Subacromial space is near normal. 3. Kacie Connolly MD IMG DX ORDERABLES documented in this encounter Visit Diagnoses Diagnosis Pain in joint, shoulder region documented in this encounter Care Teams Staff Internist Office Based Only Relationship Specialty Start Date End Date Antwon Crump DO [address] [place] [phone] PCP - General 06/09/10 08/26/14 documented as of this encounter
--- NOTE | 2024-02-02 08:00 | DI.US_ITS ---
Exam(s) US AAA SCREENING EXAM: US AAA SCREENING CLINICAL HISTORY: SCREENING FOR CARDIOVASCULAR SYSTEM DISEASE, Z13.6 COMPARISON: US ABDOMEN ULTRASOUND (P) from 05/12/2016 CT CHEST ABD PELVIS WITH CONTRAST from 05/12/2016 FINDINGS: There is no evidence of significant abdominal aortic aneurysm. The maximum diameter of the abdominal aorta is 2.3 cm, proximally, and the distal aorta tapers normal fashion. There is mild arterial megaly of the common iliac arteries. Both common iliac arteries exhibit diame ters of 1.4 cm. IMPRESSION: No evidence of abdominal aortic aneurysm. Mild symmetrical arterial megaly of the common iliac arteries. DATA REPOSITORY:
== END ==
PROVIDERS: PCP Nurse Practitioner Family; Visit Provider Nurse Practitioner Family
DX: Z13.6 Encounter for screening for cardiovascular disorders (principal); I77.89 Other specified disorders of arteries and arterioles
CPT/HCPCS: 76706

== ENCOUNTER → 2024-02-27 09:21 | Outpatient (BNVA) | payer MEDICARE, SELFPAY | PROVIDERS: PCP Nurse Practitioner Family; Referring Provider Nurse Practitioner Family; Visit Provider Surgery | DX: K40.90 Unilateral inguinal hernia, without obstruction or gangrene, not specified as recurrent (principal); I10 Essential (primary) hypertension | CPT/HCPCS: 99204 ==

== ENCOUNTER 2024-03-13 17:51 | Outpatient (REF) | payer MEDICARE, SELFPAY ==
[2024-03-13 16:34] LABS: Abs Immature Grans 0.02 10^3/uL (0.0-0.06); Absolute Eosinophil Count 0.11 10^3/uL (0.0-0.7); Absolute Lymphocyte Count 1.62 10^3/uL (1.2-3.4); Absolute Monocyte Count 0.34 10^3/uL (0.1-0.8); Absolute Neutrophil Count 4.31 10^3/uL (1.2-6.7); Eosinophils % 1.7 %; HGB 16.5 g/dL (13.5-17.5); Immature Grans % 0.3 %; Lymphocytes % 25.3 %; MCH 31.7 pg (27.0-33.0); MCHC 33.7 % (32.0-36.0); MCV 94 fL (80-95); MPV 10.7 fL (8.0-11.0); Monocytes % 5.3 %; Neutrophils % 67.4 %; Platelet Count 198 10^3/uL (130-400); RBC 5.21 10^6/uL (4.36-5.78); RDW 11.6 % (11.8-14.1); RDW-SD 40.1 fL
[2024-03-13 16:51] LABS: BUN 25 mg/dL (7-18); Calcium 9.2 mg/dL (8.5-10.1); Chloride 103 mmol/L (98-107); Estimated GFR 80.97 (mL/min/1.73m2); Glucose 115 mg/dL (74-106); Potassium 4.6 mmol/L (3.5-5.1); Sodium 139 mmol/L (136-145)
[2024-03-13 16:58] LABS: Hemoglobin A1C 5.3 % (<5.7)
[2024-03-13 17:02] LABS: Bilirubin Negative (Negative); Blood Negative (Negative); Clarity Turbid (Clear); Glucose Negative (Negative); Ketones Negative (Negative); Leukocyte Esterase Negative (Negative); Nitrite Negative (Negative); Specific Gravity 1.025 (1.005-1.025); Urobilinogen 0.2 mg/dL (Up to 0.2); pH 5.5 (5-8)
--- OUTSIDE RECORDS SUMMARY | 2024-03-13 17:54 | XMS_ITS | Encounter Summary ---
Author Organization [facility] Address [facility] [place] [address] Care Team Providers Care Early Childhood Teacher Name Role Phone Antwon Crump Primary Care Provider [phone] Encounter Details Date Type Department Care Team (Latest Contact Info) Description 03/17/2011 7:25 AM EDT - 03/17/2011 11:59 PM EDT Hospital Encounter XRay at [address] [place] [address] Pain in joint, shoulder region Social History [...] Anatomical Region Laterality Modality Shoulder Bilateral Radiographic Silvai ging 03/17/2011 7:53 AM EDT Impressions 03/17/2011 [...] region documented in this encounter Care Teams Early Childhood Teacher Relationship Specialty Start Date End Date Antwon Crump DO [address] [place] [address] PCP - General 06/09/10 08/26/14 documented as of this encounter
--- OUTSIDE RECORDS SUMMARY | 2024-03-13 17:54 | XMS_ITS | Encounter Summary ---
Author Organization [facility] Address [facility] [place] [address] Care Team Providers Care Manager Protein Name Role Phone Sahra Hope JL Primary Care Provider [phone] Encounter Details Date Type Department Care Team (Latest Contact Info) Description 05/15/2015 7:45 AM EDT - 05/15/2015 11:59 PM EDT Hospital Encounter XRay at [address] [place] [address] Dennis Ewing MD [facility] [place] [address] Hip pain, left; S/P joint replacement Discharge [...] * Differential, Automated (05/15/2015 9:22 AM EDT) Neutrophil % 74.5 % CERNER MILLENNIUM Neutrophil Absolute 4.54 1.50 - 6.30 x10(3)/mcL CERNER MILLENNIUM Lymph % 17.7 % CERNER MILLENNIUM Lymphocytes Abs 1.1 1.0 - 3.6 x10(3)/mcL CERNER MILLENNIUM Monocyte % 5.7 % CERNER MILLENNIUM Monocyte Abs 0.4 0.2 - 1.0 x10(3)/mcL CERNER MILLENNIUM Eos % 1.6 % CERNER MILLENNIUM Eosinophils Abs 0.1 0.0 - 0.5 x10(3)/mcL CERNER MILLENNIUM Basophil % 0.3 % CERNER MILLENNIUM Baso Absolute 0.0 0.0 - 0.2 x10(3)/mcL CERNER MILLENNIUM Immature Gran % 0.20 % CERN ER MILLENNIUM Comment: Immature granulocytes(IG's)percentage and absolute count will include metamyelocytes, myelocytes, and promyelocytes. Blood smears from CBCs yielding IG's will be scanned manually for concordance. If this scan disagrees with the automated IG or if promyelocytes are noted, a manual differential will be performed. Immature Gran Absolute 0.01 0.00 - 0.05 x10(3)/mcL CERNER MILLENNIUM Blood specimen (specimen) 05/15/2015 9:22 AM EDT 05/15/2015 9:28 AM EDT Narrative Resulting Agency Comment Spec In Lab Dennis Ewing MD HEMATOLOGY ORDERA BLES Performing Organization Address [facility] Co de Phone Number AKIRA HAMPTON * (ABNORMAL) Hemogram (05/15/2015 9:22 AM EDT) Pathologist [facility] White Blood Cell 6.1 4.0 - 10.0 x10(3)/mc L CERNER MILLENNIUM Red Blood Cell 4.88 4.63 - 6.08 x10(6)/mc L CERNER MILLENNIUM Hemoglobin 16.2 13.7 - 17.5 gm/dL CERNER MILLENNIUM Hematocrit 45.1 40.0 - 51.0 % CERNER MILLENNIUM Mean Cell Volume 92.4(H) 79.0 - 92.0 fL CERNER MILLENNIUM Mean Cell Hemoglobin 33.2(H) 25.6 - 32.2 pg CERNER MILLENNIUM Mean Cell Hemoglobin Concentration 35.9 32.0 - 36.5 gm/dL CERNER MILLENNIUM Platelet 187 145 - 370 x10(3)/mc L CERNER MILLENNIUM RDW Standard Deviation 39.8 35.0 - 46.0 fL CERNER MILLENNIUM RDW coefficient of variation 11.8 10.9 - 14.4 % CERNER MILLENNIUM Mean Platelet Volume 10.4 9.0 - 12.0 fL CERNER MILLENNIUM Blood specimen (specimen) 05/15/2015 9:22 AM EDT 05/15/2015 9:28 AM EDT Narrative Resulting Agency Comment Spec In Lab Dennis Ewing MD HEMATOLOGY ORDERA BLES Performing Organization Address [facility] Co de Phone Number AKIRA NORRISIUM * High Sensitivity CRP (05/15/2015 9:22 AM EDT) Pathologist [facility] C-Reactive Protein High Sensitivity 1.9 mg/L CERNER MILLENNIUM Comment: Interpretations: 1) [...] Lab Dennis Ewing MD CHEMISTRY ORDERAB LES AKIRA Clinical Ink * Sedimentation rate (05/15/2015 9:22 AM EDT) Sedimentation Rate Automated 5 0 - 15 mm/hr AKIRA HAMPTON Blood specimen (specimen) 05/15/2015 9:22 AM EDT 05/15/2015 9:28 AM EDT Narrative Resulting Agency Comment Spec In Lab Dennis Ewing MD HEMATOLOGY ORDERA BLES CCP [employer]ZA Clinical Ink * XR Pelvis AP And Hip 2 [...] means documented in this encounter Care Teams Manager Protein Relationship Specialty Start Date End Date Sahra Hope APRN [address] [place] [address] PCP - General 08/27/14 documented as of this encounter
--- OUTSIDE RECORDS SUMMARY | 2024-03-13 17:54 | XMS_ITS | Encounter Summary ---
Author Organization [facility] Address [facility] [place] [address] Care Team Providers Care Auto Club Safety Program Coordinator Name Role Phone TheronAntwon Primary Care Provider [phone] Encounter Details Date Type Department Care Team (Late st Contact Info) Description 07/12/2013 Orders [place] [address] Edgar Cottrell MD [facility] [place] [address] Status post hip replacement (Primary Dx) Social [...] means documented in this encounter Care Teams Auto Club Safety Program Coordinator Relationship Specialty Start Date End Date Antwon Crump DO [address] [place] [address] PCP - General 06/09/10 08/26/14 documented as of this encounter
--- OUTSIDE RECORDS SUMMARY | 2024-03-13 17:54 | XMS_ITS | Clinical Summary ---
Author Organization [facility] Address [facility] [place] [address] Care Team Providers Care Air Tank Assembler Name Role Phone Sahra Hope Lamin PARIKH Primary Care Provider [phone] Allergies No known active allergies Medications Medication [...] Documents on File Type Date Recorded Patient Application Chemist Expl anation Advance Directives and Yasmin g Will 09/16/2010 10:31 AM Care Teams Air Tank Assembler Relationship Specialty Start Date End Date Sahra Hope APRN [address] [place] [address] [facility] - General 08/27/14
--- OUTSIDE RECORDS SUMMARY | 2024-03-13 17:54 | XMS_ITS | Encounter Summary ---
Author Organization [facility] Address [facility] [place] [address] Care Team Providers Care Mainspring Fabrication Supervisor Name Role Phone Sahra Hope JL Primary Care Provider [phone] Encounter Details Date Type Department Care Team (Late st Contact Info) Description 04/10/2010 Orders [place] [address] Edgar Cottrell MD [facility] [place] [address] Social History Tobacco Use Types Packs/Day Years [...] 5:23 PM EDT) Surgical Pathology Report [id number] ? Location: 3T; [facility] [place]; A The signing pathologist has (i) examined [...] report in rendering the final pathologic diagnosis. [facility] 04/10/2010 5:23 PM EDT Edgar Cottrell MD PATHOLOGY/CYTOLOGY O RDERALISANDRO Performing Organization Address City/State/[facility] Co de Phone Number [facility] documented in this encounter Visit Diagnoses Not on filedocumented in this encounter Care Teams Mainspring Fabrication Supervisor Relationship Specialty Start Date End Date Sahra Hope APRN [address] [place] [address] PCP - General 08/27/14 documented as of this encounter
--- OUTSIDE RECORDS SUMMARY | 2024-03-13 17:54 | XMS_ITS | Encounter Summary ---
Author Organization [facility] [place] [address] Care Team Providers Care Typewriter Repairer Name Role Phone Sahra Hope APRN Primary Care Provider [phone] Reason for Visit * Diagnostic Test (Routine) - Closed Specialty Diagnoses / Procedures Referred By Selene beltre Referred To Contact Radiology Diagnoses S/P joint replacement Procedures NM 3 phase bone scan Dennis Ewing MD [facility] [place] [address] [place] [address] Referral ID Status Reason Start Date Expiration Date V isits Requested Visits Authorized [id number] Closed Specialty Service Requested 05/15/2015 05/14/2016 1 1 Encounter Details Date Type Department Care Team (Latest Contact Info) Description 05/26/2015 2:01 PM EST - 05/26/2015 11:59 PM EST Hospital Encounter [place] [address] Dennis Ewing MD [facility] [place] [address] Discharge Disposition: Home Social History [...] on filedocumented in this encounter Care Teams Typewriter Repairer Relationship Specialty Start Date End Date Sahra Hope APRN [address] [place] [address] PCP - General 08/27/14 documented as of this encounter
--- OUTSIDE RECORDS SUMMARY | 2024-03-13 17:54 | XMS_ITS | Encounter Summary ---
Author Organization [facility] Address [facility] [address] [address] Care Team Providers Care Elevated Work Platform Operator Name Role Phone Antwon Crump Primary Care Provider Encounter Details Date Type Department Care Team (Latest Contact Info) Description 05/30/2012 2:18 PM EST - 05/30/2012 11:59 PM EST Hospital Encounter XRay at [address] [place] [address] S/P hip replacement Social History Tobacco Use [...] means documented in this encounter Care Teams Elevated Work Platform Operator Relationship Specialty Start Date End Date Antwon Crump DO [address] [place] [address] PCP - General 06/09/10 08/26/14 documented as of this encounter
--- OUTSIDE RECORDS SUMMARY | 2024-03-13 17:54 | XMS_ITS | Encounter Summary ---
Author Organization [facility] Address [facility] [place] [address] Care Team Providers Care Emergency Care Attendant Name Role Phone TheronAntwon Primary Care Provider [phone] Encounter Details Date Type Department Care Team (Late st Contact Info) Description 03/23/2012 Orders [place] [address] Edgar Cottrell MD [facility] [place] [address] S/P hip replacement (Primary Dx) Social History [...] means documented in this encounter Care Teams Emergency Care Attendant Relationship Specialty Start Date End Date Antwon Crump DO [address] [place] [address] PCP - General 06/09/10 08/26/14 documented as of this encounter
--- OUTSIDE RECORDS SUMMARY | 2024-03-13 17:54 | XMS_ITS | Encounter Summary ---
Author Organization [facility] Address [facility] [place] [address] Care Team Providers Care Aircraft Time Clerk Name Role Phone Sahra Hope LEAD SCIENTIST Primary Care Provider [phone] Reason for Visit * Reason Comments Urticaria Encounter Details Date Type Department Care Team (Late st Contact Info) Description 08/27/2014 1:00 PM EST Office Visit Dermatology at [facility] [address] [place] [address] Korin Land PA [facility] [address] [place] [address] Chronic urticaria Discharge Disposition: Home Social History [...] 08/27/2014 Wojciech Shaw : 1955 Dermatology Physician Spiral Tube Winder Note: Korin Land PA-C (Bri) Chief Complaint Patient presents with ??? Urticaria Wojciech Shaw is a 58 y.o. male. This is a new patient to me and to the clinic. Seen in consultation at the request of Antwon Crump specifically for the evaluation and management of the above problem. HPI: Mr. 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 New or [...] urticaria documented in this encounter Care Teams Aircraft Time Clerk Relationship Specialty Start Date End Date Sahra Hope APRN [address] [place] [address] PCP - General 08/27/14 documented as of this encounter
--- OUTSIDE RECORDS SUMMARY | 2024-03-13 17:54 | XMS_ITS | Encounter Summary ---
Author Organization [facility] [place] [address] Care Team Providers Care Data Processing Manager Name Role Phone Antwon Crump DO Primary Care Provider [phone] Encounter Details Date Type Department Care Team (Late st Contact Info) Description 06/30/2010 2:00 PM EST Procedure visit [place] [address] Social History Tobacco Use Types Packs/Day Years Used Date Smoking Tobacco: Never Assessed Sex and Gender Information Value Date Recorded Sex Assigned at Not on file Gender Identity Not on file Sexual Orientation Not on file documented as of this encounter Plan of Treatment Not on file documented as of this encounter Visit Diagnoses Not on filedocumented in this encounter Care Teams Data Processing Manager Relationship Specialty Start Date End Date Antwon Crump DO [address] [place] [address] PCP - General 06/09/10 08/26/14 documented as of this encounter
--- OUTSIDE RECORDS SUMMARY | 2024-03-13 17:54 | XMS_ITS | Encounter Summary ---
Author Organization [facility] Address [facility] [place] [address] Care Team Providers Care User Support Analyst Name Role Phone TheronAntwon Primary Care Provider [phone] Reason for Visit * Reason Onset Date Comments Results 05/06/2011 Encounter Details Date Type Department Care Team (Late st Contact Info) Description 05/06/2011 Telephone [place] [address] Kacie Connolly MD [facility] DR ORTHOPA[place] [address] Results Social History Tobacco Use Types Packs/Day [...] on filedocumented in this encounter Care Teams User Support Analyst Relationship Specialty Start Date End Date Antwon Crump DO [address] [place] [address] PCP - General 06/09/10 08/26/14 documented as of this encounter
--- OUTSIDE RECORDS SUMMARY | 2024-03-13 17:54 | XMS_ITS | Encounter Summary ---
[place] [address] Care Team Providers Care Blacksmith Apprentice Name Role Phone Sahra Hope APRN Primary Care Provider [phone] Reason for Referral * Diagnostic Test (Routine) - Closed Specialty Diagnoses / Procedures Referred By Contac t Referred To Contact Radiology Diagnoses S/P joint replacement Procedures NM 3 phase bone scan Dennis Ewing MD [facility] [place] [address] [place] [address] Referral ID Status Reason Start Date Expiration Date V isits Requested Visits Authorized [id number] Closed Specialty Service Requested 05/15/2015 05/14/2016 1 1 Reason for Visit * Reason Comments Hip Pain L side denies injury * Consultation (Routine) - Closed Specialty Diagnoses / Procedures Referred By Contac t Referred To Contact Orthopaedics Diagnoses left hip pain Procedures Sahra Hope APRN [address] [place] [address] [facility] [address] [place] [address] Referral ID Status Reason Start Date Expiration Date Visits Re quested Visits Authorized [id number] Closed 05/09/2015 05/08/2016 1 1 Encounter Details Date Type Department Care Team (Late st Contact Info) Description 05/15/2015 8:30 AM EDT Office [place] [address] Dennis Ewing MD [facility] [place] [address] S/P joint replacement Social History Tobacco Use [...] at 05/26/2015 4:51 PM Dennis Ewing MD [facility] [place] ORDERABLES * High Sensitivity CRP (05/15/2015 9:22 AM EDT) [facility] C-Reactive Protein High Sensitivity 1.9 mg/L [facility] Comment: Interpretations: 1) For accurate cardiac risk [...] Lab Dennis Ewing MD CHEMISTRY ORDERAB LES [facility] * Sedimentation rate (05/15/2015 9:22 AM EDT) Sedimentation Rate Automated 5 0 - 15 mm/hr [facility] Blood specimen (specimen) 05/15/2015 9:22 AM EDT 05/15/2015 9:28 AM EDT Narrative Resulting Agency Comment Spec In Lab Dennis Ewing MD HEMATOLOGY ORDERA BLES Performing Organization Address City/[facility] [address]/ZIP Co de Phone Number [facility] documented in this encounter Visit Diagnoses Diagnosis S/P joint replacement Unspecified joint replacement by other means S/P joint replacement Unspecified joint replacement by other means documented in this encounter Care Teams Blacksmith Apprentice Relationship Specialty Start Date End Date Sahra Hope, DISTRICT COURT REPORTER [address] [place] [address] PCP - General 08/27/14 documented as of this encounter
--- OUTSIDE RECORDS SUMMARY | 2024-03-13 17:54 | XMS_ITS | Encounter Summary ---
Author Organization [facility] Address [facility] [place] [address] Care Team Providers Care Sales Service Representative Name Role Phone Antwon Crump DO Primary Care Provider Encounter Details Date Type Department Care Team (Late st Contact Info) Description 06/30/2010 2:30 PM EST Office [place] [address] Edgar Cottrell MD [facility] [place] [address] Discharge Disposition: Home Social History Tobacco Use [...] on filedocumented in this encounter Care Teams Sales Service Representative Relationship Specialty Start Date End Date Antwon Crump DO [address] [place] [address] PCP - General 06/09/10 08/26/14 documented as of this encounter
--- OUTSIDE RECORDS SUMMARY | 2024-03-13 17:54 | XMS_ITS | Referral Summary ---
Author Organization [facility] Address [address] [place] [address] Care Team Providers Care Press Feeder Broomcorn Name Role Phone Unknown, Provider Primary Care Provider [phone] Social History Tobacco Use Types Packs/Day Years Used Date Smoking Tobacco: Never Assessed Interpersonal Safety Answer Date Record ed Physically Hurt Never 02/18/2020 Verbally Threaten Not on file 02/18/2020 Sex and Gender Information Value Date Recorded Sex Assigned at Not on file Gender Identity Not on file Sexual Orientation Not on file Plan of Treatment Not on file Care Teams Press Feeder Broomcorn Relationship Specialty Start Date End Date Unknown, Provider, PCP - General 03/17/17
--- OUTSIDE RECORDS SUMMARY | 2024-03-13 17:54 | XMS_ITS | Encounter Summary ---
Author Organization [facility] Address [facility] [address] Care Team Providers Care Cd Mixer Helper Name Role Phone Sahra Hope JL Primary Care Provider [phone] Encounter Details Date Type Department Care Team (Late st Contact Info) Description 03/25/2017 Telephone Dermatology at [facility] [address] [place] [address] Shayy Ngo MD [facility] [address] [address] Social History Tobacco Use Types Packs/Day Years [...] 2:[address] Korin Man from [facility] called regarding Wojciech. She left a [...] reach out to her for guidance at [phone] documented in this encounter Plan of Treatment Not on file documented as of this encounter Visit Diagnoses Not on filedocumented in this encounter Care Teams Cd Mixer Helper Relationship Specialty Start Date End Date Sahra Hope APRN [address] [place] [address] PCP - General 08/27/14 documented as of this encounter
--- OUTSIDE RECORDS SUMMARY | 2024-03-13 17:54 | XMS_ITS | Encounter Summary ---
Author Organization [facility] Address [address] [place] [address] Care Team Providers Care Interventional Radiology Tech Name Role Phone Unknown, Provider Primary Care Provider [phone] Encounter Details Date Type Department Care Team (Late st Contact Info) Description 03/16/2017 Results Only [facility] [phone] Jay Noel, [facility]- [address] [place] [address] Social History Tobacco Use Types Packs/Day Years [...] WOJCIECH DE LEÓN ? Accession #: ? [id number] ? : ? 1955 (Age: 61) ??M ? Collect Date: ? 03/16/2017 ? Location: ? [facility] ? Receive Date: ? 03/17/2017 ? Provider: JAY ZHENG SPORTS SPECIALIST-BC Copy to: ? Final Pathologic Diagnosis: SKIN [...] (ASCP) 03/18/2017 8:20 AM End of Report [facility] 03/16/2017 19:2 2 EDT 03/17/2017 19:22 EDT Jay Noel SPORTS SPECIALIST-BC PATHOLOGY ORDERA BLES [facility] [address] [place] [address] documented in this encounter Visit Diagnoses Not on filedocumented in this encounter Care Teams Interventional Radiology Tech Relationship Specialty Start Date End Date Unknown, Provider, PCP - General 03/17/17 documented as of this encounter
--- OUTSIDE RECORDS SUMMARY | 2024-03-13 17:54 | XMS_ITS | Encounter Summary ---
Author Organization [facility] Address [facility] [place] [address] Care Team Providers Care Road Manager Name Role Phone Antwon Crump Primary Care Provider [phone] Reason for Visit * Reason Comments Aftercare Of Tjr SP L RENU DOS 04/10/10 Encounter Details Date Type Department Care Team (Late st Contact Info) Description 09/18/2013 2:20 PM EST Office [place] [address] Edgar Cottrell MD [facility] [place] [address] S/P hip replacement (Primary Dx) Discharge Disposition: [...] Biolox Delta ceramic, Size 36+5mm Acetabulum: DePuy [place] with Gription, Size 54mm adjuvant screw [...] means documented in this encounter Care Teams Road Manager Relationship Specialty Start Date End Date Antwon Crump DO [address] [place] [address] PCP - General 06/09/10 08/26/14 documented as of this encounter
--- OUTSIDE RECORDS SUMMARY | 2024-03-13 17:54 | XMS_ITS | Encounter Summary ---
[place] [address] Care Team Providers Care Outsole Cementer Name Role Phone Antwon Crump DO Primary Care Provider [phone] Reason for Referral * Consultation (Routine) - Closed Specialty Diagnoses / Procedures Referred By Selene beltre Referred To Contact Neurology Diagnoses Paresthesias/numbness Saurabh Bonilla III, MD [facility] ORTHOPAEDIC [place] [address] [facility] [address] [place] [address] Referral ID Status Reason Start Date Expiration Date V isits Requested Visits Authorized [id number] Closed Consult, Test & Treat 03/17/2011 09/13/2011 1 1 Reason for Visit * Reason Comments Bilateral Shoulder Pain 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 He states he is otherwise healthy, and has no complaints of shoulder or neck pain. PAST MEDICAL HISTORY: Status post left total hip arthro[place] [address] Cottrell. MEDICATIONS: None. ALLERGIES: NONE. 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 He is very active in variety of [...] testing. It was a pleasure meeting Mr. hSaw today, and we look forward to speaking to him in the future. All of his questions and concerns were answered. Attending addendum: The preceeding portion of this note was written by Dr. Bonilla. I personally saw and evaluated the patient as well and I agree with the assessment and plan documented above. Kacie Connolly M.D., M.S. Sharepoint Application Developer of Orthopaedic Surgery Shoulder, Elbow, and Sports Medicine Department of Orthopaedic Surgery [place], [place] [address] documented in this encounter Plan of Treatment Scheduled Referrals Name Type Priority Associated Diagnoses Orde r Schedule REFERRAL TO NEUROLOGY Outpatient Referral Routine Paresthesias/numbnes s Ordered: 03/17/2011 documented as of this encounter Visit Diagnoses Diagnosis Paresthesias/numbness- Primary Disturbance of skin sensation documented in this encounter Care Teams Outsole Cementer Relationship Specialty Start Date End Date Antwon Crump DO [address] [place] [address] PCP - General 06/09/10 08/26/14 documented as of this encounter
--- OUTSIDE RECORDS SUMMARY | 2024-03-13 17:54 | XMS_ITS | Encounter Summary ---
Author Organization [facility] [place] [address] Care Team Providers Care Construction Operations Manager Name Role Phone Antwon Crump DO Primary Care Provider [phone] Encounter Details Date Type Department Care Team (Late st Contact Info) Description 04/30/2011 Orders [place] [address] Genevieve Evans MD [facility] PHYSICAL MEDICINE & [place] [address] Social History Tobacco Use Types Packs/Day Years [...] on filedocumented in this encounter Care Teams Construction Operations Manager Relationship Specialty Start Date End Date Antwon Crump DO [address] [place] [address] PCP - General 06/09/10 08/26/14 documented as of this encounter
--- OUTSIDE RECORDS SUMMARY | 2024-03-13 17:54 | XMS_ITS | Encounter Summary ---
Author Organization [facility] Address [facility] [place] [address] Care Team Providers Care Firer Kiln Name Role Phone Sahra Hope JL Primary Care Provider [phone] Encounter Details Date Type Department Care Team (Late st Contact Info) Description 09/11/2014 Telephone Dermatology at [facility] [address] [place] [address] Korin Land PA [facility] [address] Y[address] [place] [address] Social History Tobacco Use Types Packs/Day Years [...] on filedocumented in this encounter Care Teams Firer Kiln Relationship Specialty Start Date End Date Sahra Hope APRN [address] [place] [address] PCP - General 08/27/14 documented as of this encounter
--- OUTSIDE RECORDS SUMMARY | 2024-03-13 17:54 | XMS_ITS | Encounter Summary ---
Author Organization [facility] Address [address] [place] [address] Care Team Providers Care Mussel Opener Name Role Phone Unknown, Provider Primary Care Provider Reason for Visit * Reason Onset Date Comments Other 03/25/2017 Encounter Details Date Type Department Care Team (Late st Contact Info) Description 03/25/2017 Telephone [facility] Dermatology 3rd Floor [address] [id number] Stacy Rhodes MD PhD [address] [place] [address], [address] [place] [address] Other Social History Tobacco Use [...] in PRISM Returned call to Lakeshia Xiao, QA SPECIALIST Spoke to Genevieve at [facility] who took a message for her to call us back In addition, if patient is being referred, we'll need more clinical information - please Fax notes If she is looking for telephone consult with one of the providers, she can call via PAS to speak with Web Merchant On-call HAILEE CONNOLLY RN 03/29/2017 11:37 * Telephone Encounter - Anny Ya - 03/25/2017 1633 EDT Lakeshia Xiao QA SPECIALIST is asking for a consult over the phone for a pathology report. Patient doesn'thave an appointment yet. Please call to discuss. documented in this encounter Plan of Treatment Not on file documented as of this encounter Visit Diagnoses Not on filedocumented in this encounter Care Teams Mussel Opener Relationship Specialty Start Date End Date Unknown, Provider, PCP - General 03/17/17 documented as of this encounter
--- OUTSIDE RECORDS SUMMARY | 2024-03-13 17:54 | XMS_ITS | Encounter Summary ---
Author Organization [facility] Address [address] [place] [address] Care Team Providers Care Public Health Physician Name Role Phone Unavailable Primary Care Provider Unavailabl e Encounter Details Date Type Department Care Team (Latest Contact Info) Description 03/16/2017 11:42 EDT - 03/16/2017 23:59 EDT Hospital Encounter [address] [address] Unknown, Provider, Discharge Disposition: Home or Self Care Social History Tobacco Use Types Packs/Day Years Used Date Smoking Tobacco: Never Assessed Sex and Gender Information Value Date Recorded Sex Assigned at Not on file Gender Identity Not on file Sexual Orientation Not on file documented as of this encounter Discharge Disposition Disposition Code Departure Means Destination Home or Self Half-Way documented in this encounter Plan of Treatment Not on file documented as of this encounter Visit Diagnoses Not on filedocumented in this encounter
--- OUTSIDE RECORDS SUMMARY | 2024-03-13 17:54 | XMS_ITS | Encounter Summary ---
[place] [address] Care Team Providers Care Flooring Machine Operator Name Role Phone Sahra Hope JL Primary Care Provider [phone] Reason for Visit * Reason Onset Date Comments Medication Refill 06/23/2020 Encounter Details Date Type Department Care Team (Late st Contact Info) Description 06/23/2020 Telephone Orthopaedics at [address] [id number] Moncho Peterson PA [address] [place] [address] [place] [address] Medication Refill Social History Tobacco Use Types [...] Hip Replacement 04/11/[address] Cottrell at [facility] and was followed by Dr. Cottrell at [place]. Mr. Shaw is looking for a refill on her pre medication prior to dental work. Amoxicillin 500 mg 4 tablets 1 hour prior to all Dental procedures Would like that called into [facility] in [facility] [phone] Any questions or concerns please give him a call. documented in this encounter Plan of Treatment Not on file documented as of this encounter Visit Diagnoses Diagnosis Aftercare following joint replacement documented in this encounter Care Teams Flooring Machine Operator Relationship Specialty Start Date End Date Sahra Hope APRN [address] [place] [address] PCP - General 08/27/14 documented as of this encounter
--- OUTSIDE RECORDS SUMMARY | 2024-03-13 17:54 | XMS_ITS | Encounter Summary ---
Author Organization [facility] Address [facility] [place] [address] Care Team Providers Care Pipeline Superintendent Division Name Role Phone TheronAntwon Primary Care Provider [phone] Encounter Details Date Type Department Care Team (Latest Contact Info) Description 09/18/2013 1:00 PM EST - 09/18/2013 11:59 PM EST Hospital Encounter XRay at [address] [place] [address] Status post hip replacement Social History Tobacco [...] means documented in this encounter Care Teams Pipeline Superintendent Division Relationship Specialty Start Date End Date Antwon Crump DO [address] [place] [address] PCP - General 06/09/10 08/26/14 documented as of this encounter
--- OUTSIDE RECORDS SUMMARY | 2024-03-13 17:54 | XMS_ITS | Encounter Summary ---
Author Organization [facility] [place] [address] Care Team Providers Care Side Framer Name Role Phone Antwon Crump DO Primary Care Provider [phone] Encounter Details Date Type Department Care Team (Late st Contact Info) Description 03/17/2011 Orders [place] [address] Kacie Connolly MD [facility] [place] [address] Social History Tobacco Use Types Packs/Day Years Used Date Smoking Tobacco: Never Sex and Gender Information Value Date Recorded Sex Assigned at Not on file Gender Identity Not on file Sexual Orientation Not on file documented as of this encounter Plan of Treatment Not on file documented as of this encounter Visit Diagnoses Not on filedocumented in this encounter Care Teams Side Framer Relationship Specialty Start Date End Date Antwon Crump DO [address] [place] [address] PCP - General 06/09/10 08/26/14 documented as of this encounter
--- OUTSIDE RECORDS SUMMARY | 2024-03-13 17:54 | XMS_ITS | Encounter Summary ---
[place] [address] Care Team Providers Care Bottle Hop Name Role Phone Sahra Hope APRN Primary Care Provider [phone] Reason for Referral * Diagnostic Test (Routine) - Closed Specialty Diagnoses / Procedures Referred By Contac t Referred To Contact Radiology Diagnoses S/P joint replacement Procedures NM 3 phase bone scan Dennis Ewing MD [facility] [place] [address] [place] [address] Referral ID Status Reason Start Date Expiration Date V isits Requested Visits Authorized [id number] Closed Specialty Service Requested 05/15/2015 05/14/2016 1 1 Reason for Visit * Diagnostic Test (Routine) - Closed Specialty Diagnoses / Procedures Referred By Contac t Referred To Contact Radiology Diagnoses S/P joint replacement Procedures NM 3 phase bone scan Dennis Ewing MD [facility] [place] [address] [place] [address] Referral ID Status Reason Start Date Expiration Date V isits Requested Visits Authorized [id number] Closed Specialty Service Requested 05/15/2015 05/14/2016 1 1 Encounter Details Date Type Department Care Team (Latest Contact Info) Description 05/26/2015 11:23 AM EST - 05/26/2015 2:00 PM EST Hospital Encounter [place] [address] Dennis Ewing MD [facility] DR [place] [address] S/P joint replacement Discharge Disposition: Home Social [...] at 05/26/2015 4:51 PM Dennis Ewing MD [facility] [place] ORDERABLES documented in this encounter Visit [...] mCi documented in this encounter Care Teams Bottle Hop Relationship Specialty Start Date End Date Sahra Hope APRN [address] [place] [address] PCP - General 08/27/14 documented as of this encounter
--- OUTSIDE RECORDS SUMMARY | 2024-03-13 17:54 | XMS_ITS | Encounter Summary ---
[place] [address] Care Team Providers Care Associate Curator Name Role Phone Antwon Crump DO Primary Care Provider [phone] Encounter Details Date Type Department Care Team (Late st Contact Info) Description 11/29/2012 Orders [place] [address] David Bear, RN Social History Tobacco Use [...] on filedocumented in this encounter Care Teams Associate Curator Relationship Specialty Start Date End Date Antwon Crump DO [address] [place] [address] PCP - General 06/09/10 08/26/14 documented as of this encounter
--- OUTSIDE RECORDS SUMMARY | 2024-03-13 17:54 | XMS_ITS | Encounter Summary ---
Author Organization [facility] [place] [address] Care Team Providers Care Admin Asst Name Role Phone Antwon Crump DO Primary Care Provider [phone] Encounter Details Date Type Department Care Team (Late st Contact Info) Description 03/12/2011 Orders [place] [address] Kacie Connolly MD [facility] [place] [address] Pain in joint, shoulder region (Primary Dx) [...] Primary documented in this encounter Care Teams Admin Asst Relationship Specialty Start Date End Date Antwon Crump DO [address] [place] [address] PCP - General 06/09/10 08/26/14 documented as of this encounter
--- OUTSIDE RECORDS SUMMARY | 2024-03-13 17:54 | XMS_ITS | Encounter Summary ---
Author Organization [facility] Address [facility] [place] [address] Care Team Providers Care Framing Mill Operator Helper Name Role Phone TheronAntwon Arnie GRAJEDA Primary Care Provider [phone] Reason for Visit * Reason Comments Aftercare Of Tjr s/p left RENU 04/10/10 Encounter Details Date Type Department Care Team (Late st Contact Info) Description 05/30/2012 2:55 PM EST Office [place] [address] Edgar Cottrell MD [facility] [place] [address] S/P hip replacement Discharge Disposition: Home Social [...] Biolox Delta ceramic, Size 36+5mm Acetabulum: DePuy [place] with Gription, Size 54mm adjuvant screw [...] means documented in this encounter Care Teams Framing Mill Operator Helper Relationship Specialty Start Date End Date Antwon Crump DO [address] [place] [address] PCP - General 06/09/10 08/26/14 documented as of this encounter
--- OUTSIDE RECORDS SUMMARY | 2024-03-13 17:54 | XMS_ITS | Encounter Summary ---
Author Organization [facility] Address [facility] [place] [address] Care Team Providers Care Comber Tender Name Role Phone Sahra Hope JL Primary Care Provider [phone] Encounter Details Date Type Department Care Team (Late st Contact Info) Description 03/29/2017 Telephone Dermatology at [facility] [address] [place] [address] Shayy Ngo MD [facility] [address] [place] [address] Social History Tobacco Use Types Packs/Day Years [...] 1:26 PM EDT I spoke with Wojciech Shwa about scheduling a full skin exam and the patient declined at this time. Wojciech did take my direct number to schedule after he's thought about it, patient stated, that we have jumped the gun. documented in this encounter Plan of Treatment Not on file documented as of this encounter Visit Diagnoses Not on filedocumented in this encounter Care Teams Comber Tender Relationship Specialty Start Date End Date Sahra Hope APRN [address] [place] [address] PCP - General 08/27/14 documented as of this encounter
--- OUTSIDE RECORDS SUMMARY | 2024-03-13 17:54 | XMS_ITS | Encounter Summary ---
Author Organization [facility] Address [facility] [place] [address] Care Team Providers Care Deployment Technician Name Role Phone Sahra Hope JL Primary Care Provider [phone] Encounter Details Date Type Department Care Team (Late st Contact Info) Description 03/28/2017 Telephone Dermatology at [facility] [address] [place] [address] Shayy Ngo MD [facility] [address] [address] Social History Tobacco Use Types Packs/Day Years [...] best number to reach her back is [phone] 8 am - 5 pm. documented in this encounter Plan of Treatment Not on file documented as of this encounter Visit Diagnoses Not on filedocumented in this encounter Care Teams Deployment Technician Relationship Specialty Start Date End Date Sahra Hope APRN [address] [place] [address] PCP - General 08/27/14 documented as of this encounter
--- OUTSIDE RECORDS SUMMARY | 2024-03-13 17:54 | XMS_ITS | Encounter Summary ---
Author Organization [facility] [place] [address] Care Team Providers Care Pharmacist Per Diem Name Role Phone TheronAntwon Primary Care Provider [phone] Reason for Visit * Reason Onset Date Comments Medication Refill 06/03/2014 Encounter Details Date Type Department Care Team (Late st Contact Info) Description 06/03/2014 Telephone [place] [address] Edgar Cottrell MD [facility] DR [place] [address] Medication Refill Social History Tobacco Use Types [...] pharmacy? If so, which one? [facility] [place] [place] If not, are you coming to pick this up? N/A Or, would you like this mailed to your home. Best number to reach person calling? [phone] The nurse will call you when your prescription is ready, please allow up to 72 hrs for processing. documented in this encounter Plan of Treatment Not on file documented as of this encounter Visit Diagnoses Diagnosis Aftercare following joint replacement documented in this encounter Care Teams Pharmacist Per Diem Relationship Specialty Start Date End Date Antwon Crump DO [address] [place] [address] PCP - General 06/09/10 08/26/14 documented as of this encounter
--- OUTSIDE RECORDS SUMMARY | 2024-03-13 17:54 | XMS_ITS | Encounter Summary ---
[place] [address] Care Team Providers Care Driver Education Instructor Name Role Phone Antwon Crump DO Primary Care Provider [phone] Encounter Details Date Type Department Care Team (Late st Contact Info) Description 03/16/2011 [place] [address] Nirali Colón, RN Social History Tobacco Use [...] on filedocumented in this encounter Care Teams Driver Education Instructor Relationship Specialty Start Date End Date Antwon Crump DO [address] [place] [address] PCP - General 06/09/10 08/26/14 documented as of this encounter
--- OUTSIDE RECORDS SUMMARY | 2024-03-13 17:54 | XMS_ITS | Encounter Summary ---
Author Organization [facility] Address [facility] [place] [address] Care Team Providers Care Cell Operator Name Role Phone Antwon Crump Primary Care Provider [phone] Reason for Visit * Reason Comments Bilateral Arm Pain Discomfort Left is w orse than right, Complains of numbness Encounter Details Date Type Department Care Team (Late st Contact Info) Description 04/29/2011 12:00 PM EDT Procedure [place] [address] Genevieve Evans MD [facility] PHYSICAL MEDICINE & [place] [address] Carpal tunnel syndrome (Primary Dx) Discharge Disposition: [...] Primary documented in this encounter Care Teams Cell Operator Relationship Specialty Start Date End Date Antwon Crump DO [address] [place] [address] PCP - General 06/09/10 08/26/14 documented as of this encounter
--- OUTSIDE RECORDS SUMMARY | 2024-03-13 17:54 | XMS_ITS | Encounter Summary ---
Author Organization [facility] Address [facility] [place] [address] Care Team Providers Care Hypertrichologist Name Role Phone JayyLeeanna reishryn Lamin PARIKH Primary Care Provider [phone] Reason for Referral * Physical Therapy (Routine) - Closed Specialty Diagnoses / Procedures Referred By Selene beltre Referred To Contact Physical Therapy Diagnoses S/P hip replacement Clarisse Ramírez PA [facility] [place] [address] Referral ID Status Reason Start Date Expiration Date V isits Requested Visits Authorized [id number] Closed Evaluate and Treat 06/02/2015 11/29/2015 12 12 Reason for Visit * Reason Comments Left Hip Pain S/P Lt RENU DOS Encounter Details Date Type Department Care Team (Late st Contact Info) Description 06/02/2015 8:20 AM EST Office Visit [place] [address] Thomas Yan MD [facility] [address] S/P hip replacement Social History Tobacco Use [...] visit without evidence of loosening. Questionnaire Responses: [facility] Surgical Postop Visit 06/01/2015 PROMIS-10 General Health [...] surgery on same body part No Orthopeadics [facility] Response 06/01/2015 HOOS-PS Scores 4.6 ASES VAS-RIGHT [...] means documented in this encounter Care Teams Hypertrichologist Relationship Specialty Start Date End Date Sahra Hope APRN [address] [place] [address] PCP - General 08/27/14 documented as of this encounter
--- OUTSIDE RECORDS SUMMARY | 2024-03-13 17:54 | XMS_ITS | Clinical Summary ---
Author Organization [facility] Address [address] [place] [address] Care Team Providers Care Wet Process Miller Head Assistant Name Role Phone Unknown, Provider Primary Care [...] COVID-19 Vaccine (2022-24 season) 2023 Care Teams Wet Process Miller Head Assistant Relationship Specialty Start Date End Date Unknown, Provider, PCP - General 03/17/17
== END 2024-03-13 17:52 | disposition home or self-care (01) ==
LOC: LBN 17:51
PROVIDERS: PCP Nurse Practitioner Family; Visit Provider Surgery
DX: C50.919 Malignant neoplasm of unspecified site of unspecified female breast (principal); I10 Essential (primary) hypertension; K40.90 Unilateral inguinal hernia, without obstruction or gangrene, not specified as recurrent; R31.9 Hematuria, unspecified; R81 Glycosuria
CPT/HCPCS: 80048; 81003; 83036; 85025

== ENCOUNTER 2024-04-03 11:56 | Day surgery (SDC) | payer MEDICARE, SELFPAY ==
--- NOTE | 2024-04-02 11:37 | W.PM.HP.N ---
Date of service: 04/03/24 Time of Service: 12:58 Assessment and Plan Assessment and plan (1) Essential hypertension: Status: Acute (2) Glucose found in urine on examination: (3) Inguinal hernia: Status: Acute Assessment and plan: pt is here today for right inguinal hernia repair. Rewied risk of surgery, post expectations and cares. Pt is stable to proceed w/ procedure today I discussed the nature of inguinal hernias with the patient: how they form, and consequences of incarceration.? We discussed the warning signs of incarcerations (Severe pain/hardness and inability to reduce the hernia/vomiting/redness and fever) ?and when/how to seek medical attention (our office/PCP or ED).? ?I discussed the surgery in detail and the complications related to the surgery and the anesthesia.? I do recommend that the pt have a nerve block for postop pain control.? We also discussed multi-modality pain management.? Pt. expressed understanding; all questions were answered to the patient satisfaction and they do wish to proceed with surgery.? Patient was given an educational booklet & and a copy of the postop instructions and expressed understanding of how to care for themselves after surgery. Risks of the surgery include but are not limited to: Bleeding/infection/pneumonia/damage to blood vessels or bladder or?bowels/blood clots or PE/chronic pain/urinary retention/chronic numbness/reoccurrence/reaction to mesh requiring removal/damage to testicle or sterility/complications of anesthesia.?We also discussed the possibility of postop urinary retention and swelling/ bruising. ?The pt will have a pre-Op PE to ensure fitness for anesthesia, and preOp cardiac testing as deemed necessary. ?The procedure will be done with abx and under sterile conditions. This is an outpt day surgery.? ??The pt requires a ride home from surgery and someone to stay with the pt for 24 hrs after anesthesia.? No lifting over 5 pounds for 2-3 weeks after surgery.? Also take Miralax postop to avoid constipation. History of Present Illness Narrative: Patient is here today for colonoscopy for right inguinal hernia.??? They completed a bowel prep with just a clear yellow residual effluent.? They not having any chest pain or shortness of breath, currently.? They are not experiencing any fever or chills.? They deny any productive cough or upper respiratory tract infection signs or symptoms.? They are not having abdominal pain, or nausea and vomiting.? They have not had any changes in medications, past medical history or past surgical history since previously being seen in the office. They have not had any accidents or have been in the ER since the clinic pre-operative evaluation. ?Patient has developed a rash on his upper torso. He does not appear to have cellulitis. It is nowhere near our surgical site. ?I reviewed the procedure with the patient today, including risks and benefits of the procedure, and what they could expect at home for recovery.? All questions are answered to the patient?s satisfaction today, and they are stable to proceed with the proposed procedure. I discussed the nature of inguinal hernias with the patient: how they form, and consequences of incarceration.? We discussed the warning signs of incarcerations (Severe pain/hardness and inability to reduce the hernia/vomiting/redness and fever) ?and when/how to seek medical attention (our office/PCP or ED).? ?I discussed the surgery in detail and the complications related to the surgery and the anesthesia.? I do recommend that the pt have a nerve block for postop pain control.? We also discussed multi-modality pain management.? Pt. expressed understanding; all questions were answered to the patient satisfaction and they do wish to proceed with surgery.? Patient was given an educational booklet & and a copy of the postop instructions and expressed understanding of how to care for themselves after surgery. Risks of the surgery include but are not limited to: Bleeding/infection/pneumonia/damage to blood vessels or bladder or?bowels/blood clots or PE/chronic pain/urinary retention/chronic numbness/reoccurrence/reaction to mesh requiring removal/damage to testicle or sterility/complications of anesthesia.?We also discussed the possibility of postop urinary retention and swelling/ bruising. ?The pt will have a pre-Op PE to ensure fitness for anesthesia, and preOp cardiac testing as deemed necessary. ?The procedure will be done with abx and under sterile conditions. This is an outpt day surgery.? ??The pt requires a ride home from surgery and someone to stay with the pt for 24 hrs after anesthesia.? No lifting over 5 pounds for 2-3 weeks after surgery.? Also take Miralax postop to avoid constipation. Pt not had a CBC in > 10 yrs and should be checked. labs ordered. 1. Right inguinal hernia. The presence of a right inguinal hernia necessitates surgical intervention. The surgical procedure, including the associated risks, benefits, and alternatives, was conducted. He was advised to avoid heavy lifting over 5 pounds for 2 weeks post-surgery. Post-surgery, he was advised to alternate between Tylenol and Advil for the first 3 days to manage swelling. The surgery is to be postponed for at least a month. 2. Hypertension. Need to f/u w/ PCP and get BP under control. At [facility], he is at high risk for [place]/CVA. also, we would do not do elective surgery w/ these numbers. F/u PCP. He was advised to maintain a healthy diet and regular exercise. blood in urine- repeat UA was negative for blood. RN: Pt here for right groin hernia that he reports happened while cross country skiing, again this spring pt then noted pain, now notes that he has a bulge that gets progessively bigger through out the day. Pain level today in the office is 0/10, but 3-4 pm it is a 7/10. BP- high and fluctates. no prior CE KY/CVA- no high BP ? JOE inhibitor- something to protect kidneys asthma- no OFELIA- sesaonal allergies DM- none GERD- not generally pain and bulge. no prior surgery PSHX L total hip T&A wisdom teeth No prior CE PCP_ [facility] at [place] Patient has not had a CBC since 2013 and needs to have this prior to surgery The patient is a 67-year-old male who is here today regarding a right inguinal hernia. He is experiencing a right-sided inguinal hernia, which intensifies, particularly at the end of the day, particularly when standing. He also reports swelling, bulging, and discomfort in the area, particularly noticeable during a walk uphill. The discomfort is particularly noticeable when he coughs, sneezes, or hits the top of the hernia. He has no history of surgery in this area. He underwent a left total hip replacement on 04/11/2023 and has since recovered from neuropathy. 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 He also had a tonsillectomy and wisdom tooth extraction as a child. He has never undergone a colonoscopy. He experienced no complications with anesthesia during his hip surgery, despite being offered a trial of ketamine and regular anesthetic. He has no history of heart attack or stroke, but his primary care physician, Yoli, expressed concerns about his blood pressure and suggested a blood thinner. His primary care physician also recommended a kidney-protective agent, the name of which he can not recall. His primary care physician is Yoli Lepe at the [facility]. He denies any history of asthma, sleep apnea, or diabetes. He has lost weight, dropping from 175 to 180 pounds, and is making dietary changes, including eliminating potato chips, diet Coke, and [employer], to improve his blood pressure. He denies any heartburn or indigestion, and finds that sleeping on his left side is better than sleeping on his right side. He denies any chronic cough. His urination is slightly slower than usual, which he attributes to his age. He denies any straining, bowel movements, or blood in his stools. He denies any unexplained weight loss, constipation, or straining. His bowel movements vary, which he attributes to his diet. He has not received the influenza vaccine. He denies any flu or cold symptoms, but does have nasal congestion. His cholesterol has been checked, and it is slightly elevated. His blood pressure has been fluctuating, with readings ranging from 120 to 130 over 70 to 80 in the morning and higher in the evening, sometimes reaching 160, but often reaching 140. Yoli suggested an JOE inhibitor to protect his kidneys due to his high blood pressure. Supplemental Information Ever since he had a shingles vaccine, he had hives. It starts in the spring. It is unpredictable. It can be bilateral on both of his feet, thighs, hips, buttocks, shoulders, and arms. This morning when he woke up, there were a couple of spots, but it seems like it is starting to disappear. He tried Benadryl for a month, but it did not do anything for the itching or the hives. Review of Systems All systems reviewed & are unremarkable except as noted in HPI and below PFSH All Active Problems Shoulder joint pain (Acute) Essential hypertension (Acute) Inguinal hernia (Acute) History of left hip replacement (Acute) s/p Anterior RENU (Ronit, ~2009) Medical History Blood in urine Glucose found in urine on examination Urticaria Low back pain Social History Smoking/Tobacco Use Status: Never Smoking risk assessment performed?: Yes Alcohol Intake: current Alcohol Intake frequency: a few times a month Drug use: Never Substance use type: does not use Housing: house Do you feel safe at home: Yes Do you feel safe in your relationship?: Yes Meds Allergies and Home Medications Allergies Allergy/AdvReac Type Severity Reaction Status Date / Time No Known Allergies Allergy Verified 04/03/24 12:15 Home Medications ?Medication ?Instructions ?Recorded ?Confirmed ?Type lisinopril 10 mg tablet 10 mg PO DAILY 03/06/24 04/03/24 History tramadol 50 mg tablet 50 mg PO Q4H PRN pain (scale score 04/02/24 Rx 7-10) #14 tabs Exam Narrative Exam Narrative: PHYSICAL EXAM GENERAL APPEARANCE: Alert, healthy appearance, oriented, x 3,? in no acute distress HYDRATION: Well hydrated HEAD, EYES, EARS, NECK, THROAT: Head is normocephalic, pupils equal, round, reactive to light and accommodation, ocular movement intact, sclera clear and no jaundice. ?Dentition intact. No sore throat.? No jaw pain. No thrush NECK: Trachea midline.?? No JVD LUNGS: normal respiration/normal chest excursion. ?Clear to auscultation bilaterally. ?No wheeze. ?HEART: Regular rate and rhythm. no murmurs ABDOMEN: soft and non-tender to palpation.? Normal bowel sounds.? Right inguinal hernia Time Spent Time spent with Patient: <40 minutes Time was spent: preparing to see the patient(eg.review tests), obtaining and/or reviewing separately otained hiistory, ordering medications,tests, procedures, referring, communicating with other health vp care management, indepentently interpreting results, counseling the patient, care coordination and other
--- NOTE | 2024-04-02 11:42 | W.PM.DSUDISC ---
Date of service: 04/03/24 Time of Service: 16:27 Discharge Plan Disposition Patient Disposition: Home Condition: Good Discharge Details Reason For Visit: right inguinal hernia repair Attending Provider: Victoria Beavers Primary Care Provider: Sahra Hope Home Meds and New Rx's Prescriptions: New tramadol 50 mg tablet 50 mg PO Q4H PRN (Reason: pain (scale score 7-10)) Qty: 14 0RF Continued lisinopril 10 mg tablet 10 mg PO DAILY Discharge Instructions Additional Instructions: Dr. Beavers HERNIA REPAIR ? POSTOPERATIVE INSTRUCTIONS Patients who have this type of surgery can usually be expected to return to work within two weeks and have minimal amounts of discomfort. ? ACTIVITY: The day of surgery should be spent resting. However, you can be up for short periods of time, I.E., going to the bathroom or kitchen. Avoid lifting or straining. On the day following surgery, you can be up and about as desired. ? LIFTING: Restrict your lifting to no more than five (5) pounds for two weeks after surgery. ??We will decide when you are done with restrictions and when you can return to work, at your follow-up appointment.? No sexual activity for two weeks.? ? DIET: There are no dietary restrictions following surgery. However, you may want to start with small amounts of liquids to avoid nausea the day of surgery. ? INCISION CARE: You will notice purple skin glue closing the incision.? Do not peel this off- it will wear off on its own.? After 24 hours you may shower. The dressing may be replaced for comfort, but is not necessary. ?An ice bag may be applied to the incision for 72 hours following surgery. ? SIGNS OF INFECTION: It is not unusual to have some black and blue discoloration of the skin around the incision, but also scrotum and penis.? ?It will slowly disappear. If you have any increased redness, drainage, fever (above 100 degrees), please contact your doctor for an examination. ? DISCOMFORT: You may expect to have some mild discomfort at the incision sight. If severe pain develops you should contact your doctor for further instructions. ? URINATION: Patients who have surgery occasionally have problems urinating. If you experience problems and are not able to urinate within 6 hours following your surgery, please call your doctor immediately or go to your nearest Emergency Room for evaluation. ? DRIVING: NO driving for three (3) days after surgery, or if you are still taking narcotic pain medication.? ? MEDICATIONS: Alternate Tylenol 1000mg by mouth every 8 hours and Ibuprofen 600mg every 6 hours. ?Make sure you take ibuprofen with food and not on an empty stomach. ?Take the Tylenol and ibuprofen continuously for the first 72hrs- not just when you have pain.? Use the tramadol for breakthrough pain/pain >7.? Use ICE!?? Twenty minutes on, and then off, continuously for the first 72hours. If you are taking narcotic pain medication, follow the instructions on the label and do not drive. Pain medications can make you very constipated. Make sure you are moving your bowels daily. If not, take Miralax or Milk of Magnesia.?? Anesthesia makes you very constipated.? Take a dose of milk of magnesia the morning after surgery. ? REPORT: Unusual swelling, severe pain, unresolved nausea, signs of infection, or difficulty in urination to your surgeon. Follow up in clinic with Dr. Beavers in 2 weeks.? [phone] Stand Alone Forms: Anesthesia Discharge InstAnes. GeneNerve Block Instructions, Edd Downs (DSU) Activity:: see above Remove Dressings/Wound Care:: 24 hours Shower/Bathe:: 24 hours Diet:: As Tolerated DS: Diagnosis Discharge Diagnosis (1) Essential hypertension: Status: Acute (2) Glucose found in urine on examination: (3) Inguinal hernia: Status: Acute Asessment and Plan: The patient is doing well post-op from their right inguinal hernia repair.? They are having no nausea or vomiting. They are tolerating liquids and a snack. The pt is not having any chest pain or SOB.? Their pain is adequately controlled. They have been able to urinate.? ?HEENT:? no eye pain/drainage/redness/swelling. Mild sore throat ?Cardio- NSR, no chest pain, BP stable- see VS record ?Pulm: no sob or productive cough. No hemoptysis ?Incision- dressing is c/d/i w/ no excessive bleeding or drainage ?I discussed with the patient the findings at the time of surgery and the patient?s progress. ?We reviewed expectations at home; what the patient could expect for recovery time, and in the post-operative period.? We discussed the importance of walking to avoid blood clots and pneumonia.? We discussed and reviewed the patient's post-operative wound care and dressing needs.?? We reviewed their step-zelaya pain management plan, Rx called to the pharmacy of their choice.? We reviewed activity and limitations-see discharge instructions. We reviewed warning signs, and when to seek medical attention- see d/c instructions.?? Patient was given a postoperative follow-up appointment. Patient verbalized understanding of their postoperative instructions, how do to take care of themselves and their incision, and the pain management plan. Please see discharge instructions.?
--- NOTE | 2024-04-02 11:45 | ROE_ITS ---
Date of service: 04/03/24 Time of Service: 16:27 Operative Note Operative Note DATE OF PROCEDURE: 04/03/24 PRE-OP DIAGNOSIS: right inguinal hernia POST-OP DIAGNOSIS: same (indirect) PROCEDURE: open right inguinal hernia w/ mesh SURGEON: Victoria Blount NEUROLOGICAL SURGERY TEACHER: Karen Mora ANESTHESIA TYPE: Local By Surgeon, General LMA/ETT and Primary Nerve Block Refer to Anesthesia Record ESTIMATED BLOOD LOSS: 5 PATHOLOGY: other COMPLICATIONS: None Patient was transported to: same day Patient's condition: stable Procedure Description: INDICATIONS: The pt is here today for surgery regarding symptomatic right- inguinal hernia that has failed outpatient conservative medical management and he is here today for repair. Informed consent was obtained, explaining risks and benefits of the procedure including but not limited to bleeding, infection, pneumonia, blood clots, chronic pain, chronic numbness, damage to testicle resulting in removal, recurrence of hernia, reaction to Mesh necessitating removal, and other unforetold complications, and complications of anesthesia- which were addressed by the [employer]. The patient is marked in preOp prior to the procedure DESCRIPTION OF PROCEDURE:? The pt is then brought to the operative room suite. Anesthesia was administered per the Department of Anesthesia. ?A nerve block was performed by anesthesia under US guidance. The patient was prepped and draped in the usual sterile fashion using ChloraPrep scrub solution. Pause for the cause was done. He did receive preop IV antibiotics, and 30 mL of .25% Marcaine w/ epinephrine was used for local anesthetization. A #12 blade was used to make an incision over the external ring. Electrocautery used to provide hemostasis and dissect down to the fascia. The fascia was pretty much obliterated and there was nothing to open. The cord is elevated. The nerve was not identified. There is no cord lipomas.? Electro-cautery is used to provide hemostasis. A Farnham drain was placed around the cord to assist in mobilization. The cord was explored. ?There was is moderate/medium hernia sac on the cord. There is no direct hernia pushing through the floor. The hernia sac is dissected off the cord using a combination of blunt dissection and electrocautery.? Electrocautery is used to provide hemostasis.?? There are no contents within the hernia sac.? The hernia sac is than inverted and returned to the abdominal cavity.? A medium, size plug is than inserted into the defect through the internal ring, and over sewn to tighten up the ring with 2-0 vicryl.? Please see RN notes from Lot number of the [employer] mesh patch/plug.? The cord structures are still able to freely move through the ring itself.? The patch was then placed onto the floor, and using 2-0 Vicryl, sewn into the pubic tubercle and the shelving portions of the inguinal ligament, in the standard Lichenstein fashion.? ?The tails of the mesh are brought around the cord, sewn together w/ 2-0 Vicryl, and tucked under the external oblique.? The wound was copiously irrigated. There was no bleeding noted. The drain was removed. All structures are returned to normal anatomical position. The nerve is not sewn into the mesh, nor caught up in any sutures. The external oblique is re-approximated using 2-0 vicryl in a running fashion. ?Deep tissue was approximated with 3-0 Vicryl in a running fashion, and skin was approximated with 4-0 Monocryl in a running subcuticular fashion. Skin glue and sterile dressings are applied. The patient tolerated the procedure without complications to recovery in stable condition. VICTORIA BLOUNT, DO
[2024-04-03] VITALS (23 sets, daily range): BP systolic 152–176; BP diastolic 72–97; PULSE 51–64; RESP 0–18; TEMP 36–36.5; O2SAT 96–100; BMI 27.0
[2024-04-03] MEDS: Lactated Ringers 1,000 ML 80 ML IV (12:15)
[2024-04-03] MEDS: Gabapentin 300 MG CAP 600 MG PO (12:19)
[2024-04-03] MEDS: Acetaminophen 500 MG TAB 1000 MG PO (12:19)
--- NOTE | 2024-04-03 13:10 | W.ANESPRE ---
General Info Date of Service Date Performed: 04/03/24 Height: 5 ft 9 in Weight: 83.1 kg Body Mass Index (BMI): 27.0 Surgical Procedure: Operation Date: 04/03/24 13:25 Proposed Procedure Side Surgeon p Herniorrhaphy Inguinal w/Mesh Right Victoria Beavers DO Meds Allergies and Home Medications Allergies Allergy/AdvReac Type Severity Reaction Status Date / Time No Known Allergies Allergy Verified 04/03/24 12:15 Home Medication ?Medication ?Instructions ?Recorded lisinopril 10 mg tablet 10 mg PO DAILY 03/06/24 tramadol 50 mg tablet 50 mg PO Q4H PRN pain (scale score 04/02/24 7-10) #14 tabs Current Visit Medications: Current Medications Generic Name Dose Route Start Last Admin Trade Name Freq PRN Reason Stop Dose Admin Acetaminophen 1,000 mg 04/03/24 06:00 04/03/24 12:19 Acetaminophen 500 Mg Tab PO 04/03/24 18:00 1,000 mg PREOP LOYD Administration Gabapentin 600 mg 04/03/24 06:00 04/03/24 12:19 Gabapentin 300 Mg Cap PO 04/03/24 18:00 600 mg PREOP LOYD Administration Ringer's Solution 1,000 mls @ 80 mls/hr 04/03/24 06:00 IV 05/02/24 23:59 INFUSION LOYD Cefazolin Sodium/Dextrose 1 gm in 50 mls @ 100 mls/hr 04/03/24 06:00 Ancef Duplex IVPB 04/03/24 18:00 PREOP LOYD IV Miscellaneous Supplies 1 each 04/03/24 06:00 Iv Access IV 05/02/24 23:59 DIRECTED LOYD Sodium Chloride 0 ml 04/03/24 06:00 Normal Saline Flush 10 Ml Syr IV 05/02/24 23:59 PRN PRN Sodium Chloride 0 ml 04/03/24 06:00 Normal Saline 10 Ml Vial IJ 05/02/24 23:59 DIRECTED PRN Sterile Water 0 ml 04/03/24 06:00 Water,Injection,Sterile 10 Ml Vial IJ 05/02/24 23:59 DIRECTED PRN PFSH Active Problems Active Problems: Problem Status Onset Code Shoulder joint pain Acute M25.519 Essential hypertension Acute I10 Inguinal hernia Acute K40.90 History of left hip replacement Acute Z96.642 Medical History Medical History Blood in urine Glucose found in urine on examination Urticaria Low back pain Tobacco Smoking/Tobacco Use Status: Never Alcohol Alcohol Intake: current Alcohol intake frequency: a few times a month Substance Use Substance use: Never Substance use type: does not use Vital Signs and Lab Results Vital Signs Most Recent Vital Signs in EMR: Most Recent Vital Signs Temp Pulse Resp BP Pulse Ox 36.2 C L 64 18 165/89 H 98 04/03/24 11:58 04/03/24 11:58 04/03/24 11:58 04/03/24 11:58 04/03/24 11:58 Lab Results Blood Type / Crossmatch: No Data to Display Complete Blood Count: White Blood Count 6.40 10^3/uL (4.4-10.8) 03/13/24 09:10 Red Blood Count 5.21 10^6/uL (4.36-5.78) 03/13/24 09:10 Hemoglobin 16.5 g/dL (13.5-17.5) 03/13/24 09:10 Hematocrit 49.0 % (40.0-50.0) 03/13/24 09:10 Platelet Count 198 10^3/uL (130-400) 03/13/24 09:10 Complete Metabolic Panel: Sodium 139 mmol/L (136-145) 03/13/24 09:10 Potassium 4.6 mmol/L (3.5-5.1) 03/13/24 09:10 Chloride 103 mmol/L (98-107) 03/13/24 09:10 Carbon Dioxide 29.0 mmol/L (21.0-32.0) 03/13/24 09:10 BUN 25 mg/dL (7-18) H 03/13/24 09:10 Creatinine 1.0 mg/dL (0.70-1.30) 03/13/24 09:10 Est GFR (CKD-EPI 2020) 80.97 (mL/min/1.73m2) 03/13/24 09:10 Calcium 9.2 mg/dL (8.5-10.1) 03/13/24 09:10 Glucose 115 mg/dL (74-106) H 03/13/24 09:10 Hemoglobin A1c 5.3 % (<5.7) 03/13/24 09:10 Liver Function Panel: No Data to Display Coagulation Panel: No Data to Display Cardiac Panel: No Data to Display Arterial Blood Gas: No Data to Display Venous Blood Gas: No Data to Display Pancreas Panel: No Data to Display Thyroid Panel: No Data to Display Infectious Disease: No Data to Display Blood Cultures: No Data to Display Toxicology Panel: No Data to Display Anesthesia Assessment and Plan Anesthesia History Personal History: No History of Anesthesia Complications Family History: No Family History of Anesthesia Complications Exercise Tolerance Exercise Tolerance: Metabolic Equivalents>4 Pertinent Negatives Pertinent Negatives: No Symptoms of GERD, No Major Cardiovascular Symptoms or Complaints and No Major Pulmonary Symptoms or Complaints Cardiac & Pulmonary Exam Cardiac Exam: Normal S1/S2 Heart Sounds Pulmonary Exam: Clear Bilateral Breath Sounds Implantable Cardiac Device Does patient have a Pacemaker or an ICD?: No Airway Exam Known Difficult Airway: No Mallampati Class: 2 Mouth Opening: Normal (> 3cm) Thyromental Distance: Greater than 3 cm Facial Hair: Full [place] Neck Range of Motion: Full ROM Neck Circumference: Normal Teeth Condition: Normal Dentition ASA Classification ASA Score: ASA 2 Emergency Case?: No NPO Status NPO Status: NPO Clears >2 hours, Solids >8 hours Anesthesia Plan Resuscitation Status: Full Code Anesthesia Technique: General Anesthesia Airway Planned: LMA Pain Management: Surgeon and patient request nerve block Monitors Used: Standard Monitors and SedLine
[2024-04-03] MEDS: ceFAZolin 1 GM/50 ML BAG IVPB ×2 (13:24→13:54)
[2024-04-03] MEDS: Bupivacaine 0.25% Pres-Free W/EPI 30 ML VIAL (14:00)
--- NOTE | 2024-04-03 14:07 | W.ANESNERVE ---
Nerve Block Single Injection Procedure Date and Time Date Performed: 04/03/24 Procedure Start: 13:41 Location Where Procedure Performed Procedure Location: Operating Room Procedure Stop: 13:49 Reason Performed: Postoperative Analgesia Requesting Provider: Victoria Beavers Timeout Performed Timeout Performed: Yes Monitoring Used ECG, Blood Pressure, SpO2, ETCO2 and See EMR for corresponding vital signs Sterility Sterility: Hand Hygiene, Surgical Cap, Surgical Mask, Sterile Gloves, Sterile Drape/Sheet and Chlorhexidine Sedation Given During Procedure Sedation Given (Indicate Dose Given): No Sedation given Patient Mental Status Patient Mental Status: Performed under general anesthesia Nerve Block 1st Nerve Block: Laterality: Right Block Type: TAP Unilateral Ultrasound Image Saved?: Yes Needle / Catheter Used: 100mm SonoPlex II Local Anesthetic Bolus (Indicate Dose Given): None, Injected in 3-5ml increments after negative blood aspiration and Bupivacaine 0.25% Dose:: 20mL Additives (Indicate Dose Given): None Ultrasound: Sterile probe cover and gel used Nerve Stimulator: Not Used Paresthesia: None Procedure Tolerated: No Complications Procedure Outcome: Successful Performed By: Rubina Jones
--- NOTE | 2024-04-03 16:05 | W.ANESPOSTOP ---
Postoperative Evaluation Date, Time and Location Date Performed: 04/03/24 Time Performed: 15:40 Patient Location: Day Surgery Unit Vital Signs Most Recent Imported Vital Signs: Most Recent Vital Signs Temp Pulse Resp BP Pulse Ox 36 C L 52 L 16 164/84 H 98 04/03/24 15:38 04/03/24 15:38 04/03/24 15:38 04/03/24 15:38 04/03/24 15:38 Pain Score Most Recent Pain Score: Most Recent Pain Score Pain Level 2 04/03/24 15:38 Assessment Mental Status: Arousable with meaningful communication Airway and Respiratory Function: Patent airway with normal (patient baseline) respiratory exam Cardiovascular Function: Hemodynamically Stable Hydration Status: Adequately Hydrated Nausea & Vomiting: No Nausea or Vomiting Pain: Pain is tolerable per patient Peripheral Nerve Block: Patient did not receive a nerve block
--- NOTE | 2024-04-03 16:07 | LYM_PTH ---
PATIENT: Wojciech Shaw LOC: [facility] U#:[id number] AGE/SX: 68/M ROOM: RE04/03/[address]: Victoria Beavers : 1955 BED: DIS: 04/03/2024 SPEC #: [id number] RECD: 04/03/24 18:11 STATUS: CR REQ #: [id number] APRIL: 04/03/24 16:[address]: Victoria Beavers DEPT: Surgical Specimen RECD BY: Celena Freedman ENTERED: 04/03/24 18:12 SP TYPE: LYM OTHR DR: Sahra Hope Tissues: 1 - LYMPH NODE BIOPSY Procedures: GROSS AND MICRO LEVEL 4 Comments: [id number]
== END 2024-04-03 16:55 | disposition home or self-care (01) ==
LOC: SUR 11:56
PROVIDERS: PCP Nurse Practitioner Family; Visit Provider Surgery
PROC: (CPT 49505; principal; 2024-04-03 13:15)
DX: K40.90 Unilateral inguinal hernia, without obstruction or gangrene, not specified as recurrent (principal); D36.0 Benign neoplasm of lymph nodes
CPT/HCPCS: 49505; 76942; 88305; C1781; J0665; J0690; J1100; J1885; J2001; J2405; J2704

== ENCOUNTER → 2024-04-16 11:21 | Outpatient (BNVA) | payer MEDICARE, SELFPAY | PROVIDERS: PCP Nurse Practitioner Family; Referring Provider Nurse Practitioner Family; Visit Provider Surgery | DX: Z48.817 Encounter for surgical aftercare following surgery on the skin and subcutaneous tissue (principal) ==

== ENCOUNTER → 2024-04-23 10:14 | Outpatient (BNVA) | payer MEDICARE, SELFPAY | PROVIDERS: PCP Nurse Practitioner Family; Referring Provider Nurse Practitioner Family; Visit Provider Surgery | DX: Z48.817 Encounter for surgical aftercare following surgery on the skin and subcutaneous tissue (principal); K40.90 Unilateral inguinal hernia, without obstruction or gangrene, not specified as recurrent ==

== ENCOUNTER 2024-07-20 11:38 | Outpatient (CLI) | payer MEDICARE, SELFPAY ==
--- NOTE | 2024-07-20 10:00 | DI.RAD_ITS ---
Exam(s) XR FEMUR LT EXAM: XR FEMUR LT CLINICAL HISTORY: femur pain. TECHNIQUE: 2D digital imaging was performed. COMPARISON: CR XR HIP RT COMPLETE AP PELVIS from 04/28/2023 CR XR HIP LT AP LAT ONLY from 05/02/2023 FINDINGS: 3 views There is stable position alignment components of the left hip prosthesis. No fracture evident. Stab le appearance lucency around the upper femoral component noted. Also subtle thin area of lucency fernando und the lower femoral stem noted. More distal femur appears unremarkable IMPRESSION: Findings as above but without significant radiographic change compared to prior images of April. DATA REPOSITORY: RADIATION DOSE DELIVERED:
== END 2024-07-20 11:39 | disposition home or self-care (01) ==
LOC: DIORS 11:38
PROVIDERS: PCP Nurse Practitioner Family; Referring Provider Nurse Practitioner Family; Visit Provider Physician Assistant
DX: Z96.642 Presence of left artificial hip joint (principal); M79.652 Pain in left thigh
CPT/HCPCS: 73552; 99213

== ENCOUNTER → 2024-10-26 09:45 | Outpatient (BNVA) | payer MEDICARE, SELFPAY | PROVIDERS: PCP Nurse Practitioner Family; Referring Provider Nurse Practitioner Family | DX: M79.652 Pain in left thigh (principal); Z96.642 Presence of left artificial hip joint | CPT/HCPCS: 99212 ==

== ENCOUNTER 2024-11-19 12:21 | Outpatient (REF) | payer MEDICARE, SELFPAY ==
[2024-11-19 15:26] LABS: ALT 26 U/L (16-63); AST 23 U/L (15-37); Albumin 3.9 g/dL (3.4-5.0); Alkaline Phosphatase 79 U/L (46-116); Anion Gap 9.1 mmol/L (3-11); BUN 12 mg/dL (7-18); Bilirubin, Total 0.5 mg/dL (0.2-1.0); CO2 27.9 mmol/L (21.0-32.0); CREATININE 0.9 mg/dL (0.70-1.30); Calcium 8.7 mg/dL (8.5-10.1); Chloride 103 mmol/L (98-107); Cholesterol 227 mg/dL (<200); Estimated GFR 91.31 (mL/min/1.73m2); Glucose 112 mg/dL (74-106); Potassium 4.3 mmol/L (3.5-5.1); Sodium 140 mmol/L (136-145); Total Protein 6.8 g/dL (6.4-8.2); Triglyceride 83 mg/dL (<150)
[2024-11-19 16:19] LABS: Calculated LDL 146 mg/dL (<100); HDL Cholesterol 65 mg/dL (>or=40)
[2024-11-19 22:12] LABS: PSA, Diagnostic 0.9 ng/mL (<=6.5)
== END 2024-11-19 12:22 | disposition home or self-care (01) ==
LOC: NCHCN 12:21
PROVIDERS: PCP Nurse Practitioner Family; Visit Provider Nurse Practitioner Family
DX: E78.5 Hyperlipidemia, unspecified (principal); R39.9 Unspecified symptoms and signs involving the genitourinary system
CPT/HCPCS: 80053; 80061; 84153

== ENCOUNTER → 2025-05-23 14:14 | Outpatient (BNVA) | payer MEDICARE, SELFPAY | PROVIDERS: PCP Nurse Practitioner Family; Referring Provider Nurse Practitioner Family; Visit Provider Physical Therapy Assistant | DX: Z12.11 Encounter for screening for malignant neoplasm of colon (principal) | CPT/HCPCS: S0285 ==

== ENCOUNTER 2025-05-24 10:25 | Outpatient (REF) | payer MEDICARE, SELFPAY ==
[2025-05-24 16:15] LABS: Glucose Negative (Negative)
[2025-05-24 16:20] LABS: Microalb ug/mg Crea 6.6 ug/mg Cr
== END 2025-05-24 10:26 | disposition home or self-care (01) ==
LOC: NCHCN 10:25
PROVIDERS: PCP Nurse Practitioner Family; Visit Provider Nurse Practitioner Family
DX: R39.9 Unspecified symptoms and signs involving the genitourinary system (principal); I10 Essential (primary) hypertension
CPT/HCPCS: 81003; 82043; 82570

== ENCOUNTER 2025-05-29 10:37 | Day surgery (SDC) | payer MEDICARE, SELFPAY ==
[2025-05-29 11:19] VITALS: BP 177/99; PULSE 86; RESP 16; TEMP 36.3; O2SAT 98
[2025-05-29] MEDS: Lactated Ringers 1,000 ML 80 ML IV (11:51)
--- NOTE | 2025-05-29 12:36 | ANES.PREOP_ITS ---
General Info Date of Service Date Performed: 05/29/25 Height: 5 ft 9 in Weight: 80.1 kg Body Mass Index (BMI): 26.0 Surgical Procedure: Operation Date: 05/29/25 12:20 Proposed Procedure Side Surgeon p Colonoscopy Irish Cruz MD Actual Procedure Side Surgeon p Colonoscopy Not Applicable Irish Cruz MD Meds Allergies and Home Medications Allergies Allergy/AdvReac Type Severity Reaction Status Date / Time No Known Allergies Allergy Verified 05/29/25 11:17 Home Medication Medication Instructions Recorded lisinopril 10 mg tablet 10 mg PO DAILY 03/06/24 bisacodyl 5 mg tablet,delayed 5 mg PO ONCE Colonoscopy Bowel 05/23/25 release Prep #4 tabs levocetirizine 5 mg tablet (Xyzal) 5 mg PO DAILY PRN 1 07/23/24 polyethylene glycol 3350 17 238 g PO ONCE #238 grams 1 07/23/24 gram/dose oral powder Current Visit Medications: Current Medications Generic Name Dose Route Start Last Admin Trade Name Freq PRN Reason Stop Dose Admin Ringer's Solution 1,000 mls @ 80 mls/hr 05/29/25 06:00 05/29/25 11:51 IV 05/29/25 23:59 80 mls/hr INFUSION LOYD Administration IV Miscellaneous Supplies 1 each 05/29/25 06:00 Iv Access IV 05/29/25 23:59 DIRECTED LOYD Sodium Chloride 0 ml 05/29/25 06:00 Normal Saline Flush 10 Ml Syr IV 05/29/25 23:59 PRN PRN Sodium Chloride 0 ml 05/29/25 06:00 Normal Saline 10 Ml Vial IJ 05/29/25 23:59 DIRECTED PRN Sterile Water 0 ml 05/29/25 06:00 Water,Injection,Sterile 10 Ml Vial IJ 05/29/25 23:59 DIRECTED PRN PFSH Active Problems Active Problems: Problem Status Onset Code Shoulder joint pain Acute M25.519 Essential hypertension Acute I10 Inguinal hernia Acute K40.90 Medical History Medical History High cholesterol Pt. just prescribed medication and will start after colonoscopy Blood in urine Glucose found in urine on examination Urticaria Low back pain Surgical History Surgical History History of left hip replacement s/p Anterior RENU ([facility], ~2009) Hx of hernia repair (~03/2024) Tobacco Smoking/Tobacco Use Status: Never Alcohol Alcohol Intake: current Alcohol intake frequency: holidays/special occasions only Substance Use Substance use: Never Substance use type: does not use Vital Signs and Lab Results Vital Signs Most Recent Vital Signs in EMR: Most Recent Vital Signs Temp Pulse Resp BP Pulse Ox 36.3 C L 86 16 177/99 H 98 05/29/25 11:19 05/29/25 11:19 05/29/25 11:19 05/29/25 11:19 05/29/25 11:19 Anesthesia Assessment and Plan Anesthesia History Personal History: No History of Anesthesia Complications Family History: No Family History of Anesthesia Complications Exercise Tolerance Exercise Tolerance: Metabolic Equivalents>4 Pertinent Negatives Pertinent Negatives: No Symptoms of GERD, No Major Cardiovascular Symptoms or Complaints and No Major Pulmonary Symptoms or Complaints Cardiac & Pulmonary Exam Cardiac Exam: Normal S1/S2 Heart Sounds Pulmonary Exam: Clear Bilateral Breath Sounds Implantable Cardiac Device Does patient have a Pacemaker or an ICD?: No Airway Exam Known Difficult Airway: No Mallampati Class: 2 Mouth Opening: Normal (> 3cm) Thyromental Distance: Greater than 3 cm Neck Range of Motion: Full ROM Neck Circumference: Normal Teeth Condition: Normal Dentition ASA Classification ASA Score: ASA 2 Emergency Case?: No NPO Status NPO Status: NPO Clears >2 hours, Solids >8 hours Anesthesia Plan Resuscitation Status: Full Code Anesthesia Technique: General Anesthesia Airway Planned: Natural Airway Monitors Used: Standard Monitors
[2025-05-29 12:37] VITALS: BMI 26.0
--- NOTE | 2025-05-29 13:07 | BOWEL_PTH ---
PATIENT: Wojciech Shaw LOC: [facility] U#:[id number] AGE/SX: 69/M ROOM: RE05/29/[address]: Irish Cruz : 1955 BED: DIS: 05/29/2025 SPEC #: [id number] RECD: 05/29/25 16:54 STATUS: CR REQ #: [id number] APRIL: 05/29/25 13:[address]: Irish Cruz DEPT: Surgical Specimen RECD BY: Celena Freedman ENTERED: 05/29/25 16:55 SP TYPE: Bowel OTHR DR: Sahra Hope Tissues: 1 - BIOPSY BOWEL Procedures: GROSS AND MICRO LEVEL 4 Comments: [id number]
[2025-05-29 13:22] VITALS: BP 110/75; PULSE 68; RESP 16; TEMP 36.2; O2SAT 96
--- NOTE | 2025-05-29 13:27 | W.PM.DSUDISC ---
Date of service: 05/29/25 Discharge Plan Disposition Patient Disposition: Home Condition: Good Discharge Details Reason For Visit: Screening colonoscopy Attending Provider: Irish Cruz Primary Care Provider: Sahra Hope Recommendations for Follow Up Recommended tests to be ordered by follow up provider: Follow up pathology Home Meds and New Rx's Prescriptions: Continued levocetirizine [Xyzal] 5 mg tablet 5 mg PO DAILY PRN lisinopril 10 mg tablet 10 mg PO DAILY Discontinued bisacodyl 5 mg tablet,delayed release (DR/EC) 5 mg PO ONCE Qty: 4 0RF Rx Instructions: Per Colonoscopy bowel prep instructions polyethylene glycol 3350 17 gram/dose powder 238 g PO ONCE Qty: 238 0RF Rx Instructions: For Colonoscopy bowel prep, as directed by office Discharge Instructions Instructions: Colon polyps Additional Instructions: Your colonoscopy went well today. You did have one small polyp that was removed and will be sent to pathology. Once these results return we will contact you with them and recommendations for when to have a repeat colonoscopy. If you have any questions or concerns please contact the general surgery office. 1. If tolerated, consume a soft, low fiber diet for 1-2 days. 2[address] Do not drive, drink alcohol, operate machinery, make critical decisions, or do activities that require coordination or balance for 24 hours. 3. Because air was put into your colon during the procedure, expelling air from your rectum (passing gas or farting) is normal. 4. You may not have a bowel movement for 1-3 days because of the colonoscopy prep. This is normal. 5. Go directly to the emergency room if you notice any of the following: Develop chills (warm to touch), or if you have a thermometer and your temperature is above 101 Difficulty breathing or difficultly swallowing Persistent vomiting Severe abdominal pain, other than gas cramps Severe chest pain Black, tarry stools Any bleeding – exceeding one tablespoon 6. Call your physician if the site where your intravenous was started becomes red, swollen, painful, and warm to touch. 7. Your physician has reviewed your pre-procedure medications. Please continue to take those medications as previously ordered. You will be given specific information/education regarding any changes to your medications before leaving. Stand Alone Forms: Anesthesia Discharge Inst., [facility] ([facility]), Portal Information Activity:: Activity as Tolerated Diet:: As Tolerated Discharge Orders Discharge Orders: Discharge Order (Routine); Ordered 05/29/25 Ordered By: Irish Cruz
--- NOTE | 2025-05-29 13:29 | W.ANESPOSTOP ---
Postoperative Evaluation Date, Time and Location Date Performed: 05/29/25 Time Performed: 13:27 Patient Location: Day Surgery Unit Vital Signs Most Recent Imported Vital Signs: Most Recent Vital Signs Temp Pulse Resp BP Pulse Ox 36.2 C L 68 16 110/75 96 05/29/25 13:22 05/29/25 13:22 05/29/25 13:22 05/29/25 13:22 05/29/25 13:22 Pain Score Most Recent Pain Score: Most Recent Pain Score Pain Level 0 05/29/25 13:22 Assessment Mental Status: Arousable with meaningful communication Airway and Respiratory Function: Patent airway with normal (patient baseline) respiratory exam Cardiovascular Function: Hemodynamically Stable Hydration Status: Adequately Hydrated Nausea & Vomiting: No Nausea or Vomiting Pain: Pt. Denies Any Pain Peripheral Nerve Block: Patient did not receive a nerve block
--- NOTE | 2025-05-29 13:29 | W.COLOREPORT ---
Date of service: 05/29/25 Time of Service: 13:30 Colonoscopy Report Date of procedure: 05/29/25 Pre-op diagnosis general: Screening for colon cancer Post-op diagnosis procedure note: same Procedure: Colonoscopy with polypectomy Surgeon: Irish Cruz Anesthesia Type: General:No Airway Estimated blood loss (mL): 1 Pathology: other (Colon polyp at 70cm ) Complications: None Disposition: PACU Indications: Patient is a 69 yo male who presents for his first screening colonoscopy. He denies any changes in bowel habits. Prep: Miralax/Dulcolax Procedure Start Time: 12:55 Procedure End Time: 13:17 Retraction Time: 16 Findings: Small colon polyp at 70cm removed with cold forceps. Mild diverticulosis of the sigmoid colon. Procedure Description: The patient was brought to the endoscopy suite and placed in the left lateral decubitus position. After induction of IV sedation, a digital rectal exam was performed.. Digital exam was normal. The colonoscope was then passed to the cecum without difficulty. Cecal intubation was confirmed by the identification of the appendiceal orifice and the ileocecal valve. Upon withdrawing the colonoscope, all mucosal surfaces were inspected. The prep was noted to be adequate. At 70cm there was a small polyp, which was removed using cold forceps in its entirety. Specimen was retrieved for pathological analysis. There was no other evidence of mucosal abnormality, polyp or cancer. There was mild diverticulosis of the sigmoid colon. Retroflexion in the rectum was unremarkable. The patient tolerated the procedure well with no complications. Postoperatively, the patient was transferred to the recovery room in stable condition. [place] Bowel Prep [place] Bowel Prep Right Colon: 2 Left Colon: 3 Transverse Colon: 3 Total Score: 8
[2025-05-29 13:56] VITALS: BP 151/87; PULSE 64; RESP 14; TEMP 36.2; O2SAT 97
== END 2025-05-29 14:14 | disposition home or self-care (01) ==
PROVIDERS: PCP Nurse Practitioner Family; Visit Provider Student in an Organized Health Care Education/Training Program
PROC: 0DJD8ZZ Inspection of Lower Intestinal Tract, Via Natural or Artificial Opening Endoscopic (ICD-10-PCS; CPT 45378; principal; 2025-05-29 12:15)
DX: Z12.11 Encounter for screening for malignant neoplasm of colon (principal); D12.4 Benign neoplasm of descending colon; K57.30 Diverticulosis of large intestine without perforation or abscess without bleeding
CPT/HCPCS: 45380; 88305; J2704

== ENCOUNTER 2025-07-02 09:14 | Outpatient (REF) | payer MEDICARE, SELFPAY ==
[2025-07-02 16:33] LABS: ALT 21 U/L (10-49); AST 23 U/L (<34); Albumin 4.5 g/dL (3.2-5.0); Alkaline Phosphatase 73 U/L (46-116); Anion Gap 9.1 mmol/L (3-11); BUN 13 mg/dL (9-23); Bilirubin, Total 0.7 mg/dL (0.2-1.2); CO2 27.9 mmol/L (20.0-31.0); Calcium 9.2 mg/dL (8.3-10.6); Chloride 108 mmol/L (98-107); Cholesterol 171 mg/dL (<200); Glucose 104 mg/dL (74-106); HDL Cholesterol 61 mg/dL (>40); Potassium 4.3 mmol/L (3.5-5.1); Sodium 145 mmol/L (136-145); Total Protein 7.1 g/dL (5.7-8.2)
== END 2025-07-02 09:15 | disposition home or self-care (01) ==
LOC: NCHCN 09:14
PROVIDERS: PCP Nurse Practitioner Family; Visit Provider Nurse Practitioner Family
DX: E78.5 Hyperlipidemia, unspecified (principal); I10 Essential (primary) hypertension
CPT/HCPCS: 80053; 80061